=== PATIENT | female | born 1985 | race Caucasian/White ===

== ENCOUNTER 2018-07-05 21:32 | Emergency (ER) | payer OTHER ==
--- NOTE | 2018-07-05 22:20 | ERPHSYRPT ---
- History of Present Illness Time Seen by Provider: 07/05/18 22:20 Source: patient, family Exam Limitations: no limitations Physician History: 33 y/o white female 2 weeks s/p c section at [facility]. pt has had suprapubic pressure and fevers over last few days. pt is breast feeding. no n/v/d. she has not noticed sig drainage from site. Timing/Duration: day(s) (a few days) Quality: painful Severity: mild Associated Symptoms: fever Allergies/Adverse Reactions: Penicillins Allergy (Verified 07/05/18 22:35) Sulfa (Sulfonamide Antibiotics) Allergy (Verified 07/05/18 22:35) Home Medications: Ferrous Sulfate 325 mg [Feosol 325 mg] 325 mg PO DAILY 07/05/18 [History] Metformin HCl 500 mg [Glucophage 500 MG] 1,000 mg PO DAILY 07/05/18 [ History] Vits W-Ca,Fe,FA(<1Mg) [] 1 tab PO DAILY 07/05/18 [History] - Review of Systems Constitutional: Fever Eyes: No Symptoms Ears, Nose, & Throat: No Symptoms Respiratory: No Symptoms Cardiac: No Symptoms Abdominal/Gastrointestinal: Abdominal Pain (mils suprapubic) Genitourinary Symptoms: No Symptoms Musculoskeletal: No Symptoms Skin: No Symptoms Neurological: No Symptoms Psychological: No Symptoms Endocrine: No Symptoms Hematologic/Lymphatic: No Symptoms Immunological/Allergic: No Symptoms All Other Systems: Reviewed and Negative - Past Medical History Neurological History: No Pertinent History ENT History: No Pertinent History Cardiac History: No Pertinent History Respiratory History: No Pertinent History Endocrine Medical History: No Pertinent History Musculoskeletal History: No Pertinent History GI Medical History: No Pertinent History History: No Pertinent History Psycho-Social History: No Pertinent History Female Reproductive Disorders: No Pertinent History - Past Surgical History Neuro Surgical History: No Pertinent History Cardiac: No Pertinent History Respiratory: No Pertinent History Gastrointestinal: No Pertinent History Genitourinary: No Pertinent History Musculoskeletal: No Pertinent History Female Surgical History: Section - Nursing Vital Signs Nursing Vital Signs: Initial Vital Signs Temperature 98.2 F 07/05/18 22:18 Pulse Rate 99 H 07/05/18 22:18 Respiratory Rate 16 07/05/18 22:18 Blood Pressure 96/63 07/05/18 22:18 O2 Sat by Pulse Oximetry 99 07/05/18 22:18 Pain Scale Pain Intensity 8 - Physical Exam General Appearance: no apparent distress, alert, anxiety Eye Exam: PERRL/EOMI Ears, Nose, Throat Exam: normal ENT inspection, moist mucous membranes Neck Exam: normal inspection, non-tender, supple, full range of motion Respiratory Exam: normal breath sounds, lungs clear, airway intact, No chest tenderness, No respiratory distress Cardiovascular Exam: regular rate/rhythm, normal heart sounds, normal peripheral pulses Gastrointestinal/Abdomen Exam: soft, normal bowel sounds, tenderness (mild suprapubic), other (c section incision intact without cellulitis or drainage.), No guarding, No rebound Pelvic Exam: not done Rectal Exam: not done Back Exam: normal inspection, normal range of motion, No CVA tenderness, No vertebral tenderness Extremity Exam: normal inspection, normal range of motion, pelvis stable Neurologic Exam: alert, oriented x 3, cooperative, mooner II-XII nml as tested Skin Exam: normal color, warm, dry, other (see above) Lymphatic Exam: No adenopathy SpO2 Interpretation: normal O2 Delivery: Room Air Ordered Tests: Active Orders 24 hr Category Date Time Status IV Insertion STAT Care 07/05/18 22:38 Active ABDOMEN AND PELVIS W/0 CONTRAS [CT] Stat Exams 07/05/18 23:59 Ordered BLOOD CULTURE Stat Lab 07/05/18 23:07 Received CBC W DIFF Stat Lab 07/05/18 23:07 Completed CMP Stat Lab 07/05/18 23:07 Completed CULTURE,URINE Stat Lab 07/05/18 22:30 Received Lactic Acid Stat Lab 07/05/18 23:04 Completed Manual Differential NC Stat Lab 07/05/18 23:07 Completed UA W/RFX UR CULTURE Stat Lab 07/05/18 22:30 Completed Medication Summary Discontinued Medications Generic Name Dose Route Start Last Admin Trade Name Freq PRN Reason Stop Dose Admin Sodium Chloride 1,000 mls @ 999 mls/hr 07/05/18 22:38 07/06/18 00:36 Sodium Chloride 0.9% 1000 Ml IV 07/05/18 23:38 Infused .Q1H1M STA Infusion Sodium Chloride Confirm 07/05/18 22:49 Sodium Chloride 0.9% 1000 Ml Administered 07/05/18 22:50 Dose 1,000 mls @ ud .ROUTE .STK-MED ONE Ceftriaxone Sodium/Dextrose 1 g in 50 mls @ 100 mls/hr 07/05/18 23:35 00:36 Rocephin 1 Gm-D5w 50 Ml Bag IV 07/06/18 00:04 Infused STAT STA Infusion Ceftriaxone Sodium/Dextrose Confirm 07/05/18 23:40 Rocephin 1 Gm-D5w 50 Ml Bag Administered 07/05/18 23:41 Dose 1 g in 50 mls @ IV .STK-MED ONE Lab/Rad Data: Laboratory Result Diagrams 07/05/18 23:07 07/05/18 23:07 Laboratory Results 07/05/18 07/05/18 07/05/18 Range/Units 23:07 23:07 23:04 WBC 16.6 H (4.0-10.5) K/mm3 RBC 3.51 L (4.1-5.4) M/mm3 Hgb 9.5 L (12.0-16.0) gm/dl Hct 30.0 L (35-47) % MCV 85.5 (78-100) fl MCH 27.0 (26-32) pg MCHC 31.7 L (32-36) g/dl RDW 14.6 H (11.5-14.0) % Plt Count 363 (150-450) K/mm3 MPV 9.3 (6-9.5) fl Absolute Granulocytes 13.43 H (1.4-6.9) Sodium 143 (137-145) mmol/L Potassium 3.4 L (3.5-5.1) mmol/L Chloride 110 H (98-107) mmol/L Carbon Dioxide 21 L (22-30) mmol/L Anion Gap 15.4 H (5-15) MEQ/L BUN 14 (7-17) mg/dL Creatinine 0.63 (0.52-1.04) mg/dL Estimated GFR > 60.0 ML/MIN Glucose 81 (74-106) mg/dL Lactic Acid 0.9 (0.4-2.0) Calcium 8.7 (8.4-10.2) mg/dL Total Bilirubin 0.50 (0.2-1.3) mg/dL AST 40 H (14-36) U/L ALT 63 H (0-35) U/L Alkaline Phosphatase 475 H (38-126) U/L Serum Total Protein 6.4 (6.3-8.2) g/dL Albumin 3.0 L (3.5-5.0) g/dL Urine Color (YELLOW) Urine Appearance (CLEAR) Urine pH (5-6) Ur Specific [place] (1.005-1.025) Urine Protein (Negative) Urine Ketones (NEGATIVE) Urine Blood (0-5) Chan/ul Urine Nitrite (NEGATIVE) Urine Bilirubin (NEGATIVE) Urine Urobilinogen (0-1) mg/dL Ur Leukocyte Esterase (NEGATIVE) Urine WBC (Auto) (0-5) /HPF Urine RBC (Auto) (0-2) /HPF U Epithel Cells (Auto) (FEW) /HPF Urine Bacteria (Auto) (NEGATIVE) /HPF U Non-Squamous Epi Cells (FEW) /HPF Urine Mucus (Auto) (NEGATIVE) /HPF Urine Culture Reflexed (NO) Urine Glucose (NEGATIVE) mg/dL 07/05/18 Range/Units 22:30 WBC (4.0-10.5) K/mm3 RBC (4.1-5.4) M/mm3 Hgb (12.0-16.0) gm/dl Hct (35-47) % MCV (78-100) fl MCH (26-32) pg MCHC (32-36) g/dl RDW (11.5-14.0) % Plt Count (150-450) K/mm3 MPV (6-9.5) fl Absolute Granulocytes (1.4-6.9) Sodium (137-145) mmol/L Potassium (3.5-5.1) mmol/L Chloride (98-107) mmol/L Carbon Dioxide (22-30) mmol/L Anion Gap (5-15) MEQ/L BUN (7-17) mg/dL Creatinine (0.52-1.04) mg/dL Estimated GFR ML/MIN Glucose (74-106) mg/dL Lactic Acid (0.4-2.0) Calcium (8.4-10.2) mg/dL Total Bilirubin (0.2-1.3) mg/dL AST (14-36) U/L ALT (0-35) U/L Alkaline Phosphatase (38-126) U/L Serum Total Protein (6.3-8.2) g/dL Albumin (3.5-5.0) g/dL Urine Color VÍCTOR (YELLOW) Urine Appearance SLIGHTLY CLOUDY (CLEAR) Urine pH 5.0 (5-6) Ur Specific [place] 1.038 (1.005-1.025) Urine Protein 100 (Negative) Urine Ketones NEGATIVE (NEGATIVE) Urine Blood LARGE (0-5) Chan/ul Urine Nitrite NEGATIVE (NEGATIVE) Urine Bilirubin SMALL (NEGATIVE) Urine Urobilinogen 4 (0-1) mg/dL Ur Leukocyte Esterase SMALL (NEGATIVE) Urine WBC (Auto) 16-25 (0-5) /HPF Urine RBC (Auto) 26-50 (0-2) /HPF U Epithel Cells (Auto) RARE (FEW) /HPF Urine Bacteria (Auto) FEW (NEGATIVE) /HPF U Non-Squamous Epi Cells RARE (FEW) /HPF Urine Mucus (Auto) SLIGHT (NEGATIVE) /HPF Urine Culture Reflexed YES (NO) Urine Glucose NEGATIVE (NEGATIVE) mg/dL - Progress Progress: improved, pain not gone completely Progress Note: 07/06/18 01:08 bilat venous dopplers negative for dvt Counseled pt/family regarding: lab results, diagnosis, need for follow-up, rad results - Departure Departure Disposition: Home Clinical Impression: Bilateral lower extremity pain Condition: Stable Critical Care Time: No Referrals: JOSE LLAMAS [Primary Care Provider] - Additional Instructions: follow up later today with your primary doctor for further management
[2018-07-05] MEDS ORDERED: Sodium Chloride 0.9% 1000 ML 1,000 ML IV STA (22:38)
[2018-07-05] MEDS ORDERED: Sodium Chloride 0.9% 1000 ML 1,000 ML ONE (22:49)
[2018-07-05 23:08] LABS: Appearance SLIGHTLY CLOUDY (CLEAR); Bacteria FEW /HPF (NEGATIVE); Bilirubin SMALL (NEGATIVE); Blood LARGE Ery/ul (0-5); Epithelial Cells RARE /HPF (FEW); Glucose NEGATIVE (NEGATIVE); Ketones NEGATIVE (NEGATIVE); Leukocyte Esterase SMALL (NEGATIVE); Mucus SLIGHT /HPF (NEGATIVE); Nitrite NEGATIVE (NEGATIVE); Non-Squamous Epithelial Cells RARE /HPF (FEW); Protein,Urine Dip 100 (Negative); RBC 26-50 /HPF (0-2); Specific Gravity 1.038 (1.005-1.025); Urobilinogen 4 mg/dL (0-1)
[2018-07-05 23:11] LABS: Granulocyte Absolute (ANC) 13.43 (1.4-6.9); Hemoglobin 9.5 gm/dl (12.0-16.0); Mean Cell Volume 85.5 fl (78-100); Mean Corpuscular Hgb Concent. 31.7 g/dl (32-36); Mean Platelet Volume 9.3 fl (6-9.5); Platelet Count 363 K/mm3 (150-450); Red Blood Count 3.51 M/mm3 (4.1-5.4); Red Cell Distribution Width 14.6 % (11.5-14.0); White Blood Count 16.6 K/mm3 (4.0-10.5)
[2018-07-05 23:22] LABS: ALKALINE PHOSPHATASE 475 U/L (38-126); ANION GAP 15.4 MEQ/L (5-15); BLOOD UREA NITROGEN 14 mg/dL (7-17); CHLORIDE 110 mmol/L (98-107); Calcium 8.7 mg/dL (8.4-10.2); Carbon Dioxide 21 mmol/L (22-30); Creatinine 1 0.63 mg/dL (0.52-1.04); Glucose 81 mg/dL (74-106); Potassium 3.4 mmol/L (3.5-5.1); SGOT/AST 40 U/L (14-36); SGPT/ALT 63 U/L (0-35); SODIUM 143 mmol/L (137-145); Total Protein 6.4 g/dL (6.3-8.2)
[2018-07-05] MEDS ORDERED: ROCEPHIN 1 Gm-D5w 50 ml Bag** 1 G/50 ML IVPB IV STA (23:35)
[2018-07-05] MEDS ORDERED: ROCEPHIN 1 Gm-D5w 50 ml Bag** 1 G/50 ML IVPB IV ONE (23:40)
[2018-07-06 01:13] LABS: BAND 1 % (0.0-2.0); Lymphocytes 13 % (24-44); Monocyte 7 % (0.0-12.0); Neutrophils 79 % (36.0-66.0); Total Cells Counted 100
[2018-07-06 01:14] LABS: Platelet Estimate NORMAL (NORMAL)
[2018-07-06 01:28] VITALS: O2SAT 98
[2018-07-06] MEDS ORDERED: NORCO 5/325 MG PO ONE (03:49)
[2018-07-06] MEDS ORDERED: NORCO 5/325 MG ONE (03:49)
[2018-07-06 03:53] VITALS: BP 131/7; PULSE 124
--- NOTE | 2018-07-06 09:04 | XRAY ---
Indication: incisional swelling, fever, and elevated WBC. Multiple contiguous axial images obtained through the abdomen and pelvis without contrast as ordered. Comparison: None. Lung bases demonstrates minimal left base dependent atelectasis. No infiltrate or effusion. Heart is not enlarged. Lower anterior abdominal wall demonstrates cutaneous/subcutaneous soft tissue swelling with induration presumed postoperative. There is underlying 4.4 x 18.3 x 7.1 cm lobular fluid collection with tiny pockets of air either postoperative hematoma/seroma versus abscess. Noncontrasted stomach and bowel loops appear nonobstructed. Normal appendix with tiny appendicolith. Enlarged uterus from recent gravid status. Splenomegaly measuring 14.4 cm in greatest axial dimension. Minimal gallbladder sludge without calculi. A few tiny nonobstructing right renal punctate calculi. Remaining liver, gallbladder, pancreas, spleen, adrenal glands, kidneys, ureters, bladder, uterus, and aorta appear unremarkable for noncontrast exam. Osseous structures intact. Impression: 1. Lower anterior abdominal wall incisional fluid collection as detailed. Rule out postoperative hematoma/seroma versus abscess. 2. Gallbladder sludge and nonobstructing right renal micro-calculi. 3. Enlarged uterus and splenomegaly presumed related to recent gravid status. Comment: Preliminary interpretation was made by [facility]. No discrepancy. CT DI 27.90
== END 2018-07-06 03:55 | disposition home or self-care (01) ==
LOC: ED 21:32 → MERGE 21:32 → ED 07-06 03:55
DX: M79.605 Pain in left leg (principal); M79.604 Pain in right leg
CPT/HCPCS: 36000; 36415; 74176; 80053; 81001; 83605; 85025; 87040; 87086; 96360; 96365; 96374; 99284; J0696; A9270-GY

== ENCOUNTER 2018-07-06 12:11 | Emergency (ER) | payer OTHER ==
[2018-07-06] MEDS ORDERED: KEFLEX 500 MG PO ONE (12:44)
[2018-07-06 12:45] VITALS: BP 94/49; PULSE 84; O2SAT 98
[2018-07-06] MEDS ORDERED: KEFLEX 500 MG ONE (12:47)
--- NOTE | 2018-07-06 13:06 | ERPHSYRPT ---
- History of Present Illness Time Seen by Provider: 07/06/18 12:45 Source: patient Exam Limitations: clinical condition Patient Subjective Stated Complaint: drainage from incision site this AM pink drainage with small specks of blood clots. sdecreased pain after drainage Triage Nursing Assessment: alert in no distress. states incision site draining. noted incision with a yellow serous drainage from incision. slight redness. painful to touch. astates a large amount of drainage came from there when she went to sleep after being here. staets was a large lump on the right side yesterday which is not there now. 14 days post . Physician History: PATIENT IS POST 14 DAYS DELIVERY, PRESENTS TODAY FOR WOUND RECHECK, HAS DRAINAGE CLEAR FOR INCISIONAL SITE. DENIES FEVER OR CHILLS. EVALUATED IN EMERGENCY LAST NIGHT FOR SWELLING ADJACENT TO WOUND. DENIES FEVER OR CHILLS. PLACED ON ANTIBIOTIC KEFLEX WHICH SHE HAS NOT FILLED. Timing/Duration: today Severity: mild Modifying Factors: Improves With: other Associated Symptoms: other (WOUND DRAINAGE) Allergies/Adverse Reactions: Penicillins Allergy (Verified 07/05/18 22:35) Sulfa (Sulfonamide Antibiotics) Allergy (Verified 07/05/18 22:35) Home Medications: Ferrous Sulfate 325 mg [Feosol 325 mg] 325 mg PO DAILY 07/05/18 [History] Metformin HCl 500 mg [Glucophage 500 MG] 1,000 mg PO DAILY 07/05/18 [ History] Vits W-Ca,Fe,FA(<1Mg) [] 1 tab PO DAILY 07/05/18 [History] Hx Tetanus, Diphtheria Vaccination/Date Given: (unknown) Hx Influenza Vaccination/Date Given: No Hx Pneumococcal Vaccination/Date Given: No - Review of Systems Constitutional: No Fever, No Chills Eyes: No Symptoms Ears, Nose, & Throat: No Symptoms Respiratory: No Symptoms, No Cough, No Dyspnea Cardiac: No Symptoms, No Chest Pain, No Edema, No Syncope Abdominal/Gastrointestinal: Other (INCISIONAL WOUND WITH CLEAR DRAINAGE, SLIGHT ERYTHEMA), No Abdominal Pain, No Nausea, No Vomiting, No Diarrhea Genitourinary Symptoms: No Dysuria Musculoskeletal: No Symptoms, No Back Pain, No Neck Pain Skin: No Rash Neurological: No Dizziness, No Focal Weakness, No Sensory Changes Psychological: No Symptoms Endocrine: No Symptoms All Other Systems: Reviewed and Negative - Past Medical History Pertinent Past Medical History: Yes Neurological History: No Pertinent History ENT History: No Pertinent History Cardiac History: No Pertinent History Respiratory History: No Pertinent History Endocrine Medical History: No Pertinent History Musculoskeletal History: No Pertinent History GI Medical History: No Pertinent History History: No Pertinent History Psycho-Social History: No Pertinent History Female Reproductive Disorders: No Pertinent History Other Medical History: PCOS - Past Surgical History Past Surgical History: Yes Neuro Surgical History: No Pertinent History Cardiac: No Pertinent History Respiratory: No Pertinent History Gastrointestinal: No Pertinent History Genitourinary: No Pertinent History Musculoskeletal: No Pertinent History Female Surgical History: Section - Social History Smoking Status: Never smoker Exposure to second hand smoke: No Drug Use: none Patient Lives Alone: No - Female History Hx Now: No - Nursing Vital Signs Nursing Vital Signs: Initial Vital Signs Temperature 98.0 F 07/06/18 12:30 Pulse Rate 84 07/06/18 12:30 Respiratory Rate 18 07/06/18 12:30 Blood Pressure 94/49 07/06/18 12:30 O2 Sat by Pulse Oximetry 98 07/06/18 12:30 Pain Scale Pain Intensity 3 - Physical Exam General Appearance: no apparent distress, alert Eye Exam: PERRL/EOMI, eyes nml inspection Ears, Nose, Throat Exam: normal ENT inspection, TMs normal, pharynx normal, moist mucous membranes Neck Exam: normal inspection, non-tender, supple, full range of motion Respiratory Exam: normal breath sounds, lungs clear, No respiratory distress Cardiovascular Exam: regular rate/rhythm, normal heart sounds, normal peripheral pulses Gastrointestinal/Abdomen Exam: soft, normal bowel sounds, other, No tenderness, No mass Back Exam: normal inspection, normal range of motion, No CVA tenderness, No vertebral tenderness Extremity Exam: normal inspection, normal range of motion, pelvis stable Neurologic Exam: alert, oriented x 3, cooperative, normal mood/affect, nml cerebellar function, nml station & gait, sensation nml, No motor deficits Skin Exam: normal color, warm, dry, No rash Lymphatic Exam: No adenopathy SpO2: 98 Ordered Tests: Medication Summary Discontinued Medications Generic Name Dose Route Start Last Admin Trade Name Freq PRN Reason Stop Dose Admin Cephalexin HCl 500 mg 07/06/18 12:44 07/06/18 12:48 Keflex 500 Mg PO 07/06/18 12:45 500 mg STAT ONE Administration Cephalexin HCl Confirm 07/06/18 12:47 Keflex 500 Mg Administered 07/06/18 12:48 Dose 500 mg .ROUTE .STK-MED ONE - Progress Progress Note: 07/06/18 13:08 DRESSING CHANGE GAUZE DRESSING WITH ABD PAD Counseled pt/family regarding: diagnosis, need for follow-up - Departure Departure Disposition: Home Clinical Impression: ABDOMINAL WOUND SEROMA Condition: Stable Critical Care Time: No Referrals: JOSE LLAMAS [Primary Care Provider] - Additional Instructions: FILL PRESCRIPTION FOR ANTIBIOTIC KEFLEX AND TAKE DIRECTED. TYLENOL EVERY 4 HOURS FOR FEVER. CHANGE ABDOMINAL WOUND DRESSING EVERY 2 HOURS NEEDED. FOLLOW UP WITH OBSTETICIAN SCHEDULED.
== END 2018-07-06 13:22 | disposition home or self-care (01) ==
LOC: ED 12:11 → MERGE 12:11 → ED 13:22
DX: O90.2 Hematoma of obstetric wound (principal)
CPT/HCPCS: 99283; A9270-GY

== ENCOUNTER 2019-09-13 11:17 | Emergency (ER) | payer OTHER ==
[2019-09-13 11:37] VITALS: O2SAT 98
[2019-09-13 12:43] VITALS: BP 110/64; PULSE 68
--- NOTE | 2019-09-13 12:44 | ERPHSYRPT ---
- History of Present Illness Time Seen by Provider: 09/13/19 11:20 Source: patient Exam Limitations: no limitations Patient Subjective Stated Complaint: Pt is 5 weeks today and when she went to the restroom there was blood on the toilet paper, pt had lab work done yesterday and was told that she has a UTI Triage Nursing Assessment: Pt brought self to the ER, vitals wnl, denies pain, no blood upon urination at the ER, pulses normal, doesn't appear to be in any distress Physician History: Patient is here with blood in urine. Patient states that this started yesterday. Patient states that she is 5 weeks . States that when she wiped after pain there was blood on the toilet paper. However, she has not had a large amount of blood. She has no falls or trauma. No abdominal pain. No fever, chills, nausea, vomiting. No signs of pyelonephritis. Patient states that she did have a urine done yesterday at her doctor's office. This confirmed that she was and that she did have a UTI. However, they asked that she come here to be checked out. They did call in an antibiotic for her. Timing/Duration: yesterday Severity: mild Modifying Factors: Improves With: rest Associated Symptoms: denies symptoms Allergies/Adverse Reactions: Penicillins Allergy (Verified 09/13/19 11:36) Sulfa (Sulfonamide Antibiotics) Allergy (Verified 09/13/19 11:36) Home Medications: Metformin HCl 500 mg [Glucophage 500 MG] 1,000 mg PO DAILY 07/05/18 [History] Vits W-Ca,Fe,FA(<1Mg) [] 1 tab PO DAILY 07/05/18 [History] Levothyroxine Sodium 150 Mcg [Synthroid 150 Mcg] 150 mcg PO DAILY 09/13/19 [History] Hx Tetanus, Diphtheria Vaccination/Date Given: (unknown) Hx Influenza Vaccination/Date Given: No Hx Pneumococcal Vaccination/Date Given: No Travel Risk - International Travel Have you traveled outside of the country in past 3 weeks: No - Coronavirus Screening Are you exhibiting any of the following symptoms?: No Close contact with a COVID-19 positive Pt in past 14-21 Days: No - Review of Systems Constitutional: No Fever, No Chills Eyes: No Symptoms Ears, Nose, & Throat: No Symptoms Respiratory: No Cough, No Dyspnea Cardiac: No Chest Pain, No Edema, No Syncope Abdominal/Gastrointestinal: No Abdominal Pain, No Nausea, No Vomiting, No Lisette rrhea Genitourinary Symptoms: Hematuria, No Dysuria Musculoskeletal: No Back Pain, No Neck Pain Skin: No Rash Neurological: No Dizziness, No Focal Weakness, No Sensory Changes Psychological: No Symptoms Endocrine: No Symptoms All Other Systems: Reviewed and Negative - Past Medical History Pertinent Past Medical History: Yes Neurological History: No Pertinent History ENT History: No Pertinent History Cardiac History: No Pertinent History Respiratory History: No Pertinent History Endocrine Medical History: No Pertinent History Musculoskeletal History: No Pertinent History GI Medical History: No Pertinent History History: No Pertinent History Psycho-Social History: No Pertinent History Female Reproductive Disorders: No Pertinent History Other Medical History: PCOS - Past Surgical History Past Surgical History: Yes Neuro Surgical History: No Pertinent History Cardiac: No Pertinent History Respiratory: No Pertinent History Gastrointestinal: No Pertinent History Genitourinary: No Pertinent History Musculoskeletal: No Pertinent History Female Surgical History: Section - Social History Smoking Status: Never smoker Exposure to second hand smoke: No Drug Use: none Patient Lives Alone: No - Female History Hx Now: Yes Gestational Age: 5 weeks - Nursing Vital Signs Nursing Vital Signs: Initial Vital Signs Temperature 98.3 F 09/13/19 11:26 Pulse Rate 70 09/13/19 11:26 Blood Pressure 105/70 09/13/19 11:26 O2 Sat by Pulse Oximetry 98 09/13/19 11:26 Pain Scale Pain Intensity 0 - Physical Exam General Appearance: no apparent distress, alert Eye Exam: PERRL/EOMI, eyes nml inspection Ears, Nose, Throat Exam: normal ENT inspection, TMs normal, pharynx normal, moist mucous membranes Neck Exam: normal inspection, non-tender, supple, full range of motion Respiratory Exam: normal breath sounds, lungs clear, No respiratory distress Cardiovascular Exam: regular rate/rhythm, normal heart sounds, normal peripheral pulses Gastrointestinal/Abdomen Exam: soft, normal bowel sounds, other (No abdominal pain, tenderness, rebound, guarding), No tenderness, No mass Back Exam: normal inspection, normal range of motion, No CVA tenderness, No vertebral tenderness Extremity Exam: normal inspection, normal range of motion, pelvis stable Neurologic Exam: alert, oriented x 3, cooperative, normal mood/affect, nml cerebellar function, nml station & gait, sensation nml, No motor deficits Skin Exam: normal color, warm, dry, No rash Lymphatic Exam: No adenopathy SpO2: 98 - Course Nursing assessment & vital signs reviewed: Yes Ordered Tests: Active Orders 24 hr Category Date Time Status HCG,QUALITATIVE URINE Stat Lab 09/13/19 12:13 Completed UA W/RFX UR CULTURE Stat Lab 09/13/19 12:13 Completed Lab/Rad Data: Laboratory Results 09/13/19 09/13/19 Range/Units 12:13 12:13 Urine Color YELLOW (YELLOW) Urine Appearance SLIGHTLY CLOUDY (CLEAR) Urine pH 5.0 (5-6) Ur Specific [place] 1.015 (1.005-1.025) Urine Protein NEGATIVE (Negative) Urine Ketones NEGATIVE (NEGATIVE) Urine Blood LARGE (0-5) Chan/ul Urine Nitrite NEGATIVE (NEGATIVE) Urine Bilirubin NEGATIVE (NEGATIVE) Urine Urobilinogen NEGATIVE (0-1) mg/dL Ur Leukocyte Esterase NEGATIVE (NEGATIVE) Urine WBC (Auto) 3-5 (0-5) /HPF Urine RBC (Auto) 3-5 (0-2) /HPF U Epithel Cells (Auto) FEW (FEW) /HPF Urine Bacteria (Auto) RARE (NEGATIVE) /HPF Urine Mucus (Auto) SLIGHT (NEGATIVE) /HPF Urine Culture Reflexed NO (NO) Urine Glucose NEGATIVE (NEGATIVE) mg/dL Urine HCG, Qual POSITIVE (Negative) - Progress Progress: improved Progress Note: 09/13/19 12:44 Patient is here with blood in the urine. No abdominal pain. States that she is 5 weeks . We will send a UA, urine . 09/13/19 13:28 Urine is positive. UA does show blood. Not overwhelmingly a UTI but could still be a UTI. I do not suspect pyelonephritis, kidney stones, other sinister pathology that would put the at risk at this point time. She will need close follow-up, urine culture, return here for new or changing symptoms. Patient already has antibiotics called in for her. Therefore, we will have her take these. Return here for new or changing symptoms. - Departure Departure Disposition: Home Clinical Impression: Blood in urine Condition: Stable Critical Care Time: No Referrals: DOCTOR,NO FAMILY [Primary Care Provider] - Instructions: Heavy Periods (DC)
[2019-09-13 13:10] LABS: Appearance SLIGHTLY CLOUDY (CLEAR); Bacteria RARE /HPF (NEGATIVE); Bilirubin NEGATIVE (NEGATIVE); Blood LARGE Ery/ul (0-5); Epithelial Cells FEW /HPF (FEW); Glucose NEGATIVE (NEGATIVE); Ketones NEGATIVE (NEGATIVE); Leukocyte Esterase NEGATIVE (NEGATIVE); Mucus SLIGHT /HPF (NEGATIVE); Nitrite NEGATIVE (NEGATIVE); Protein,Urine Dip NEGATIVE (Negative); Specific Gravity 1.015 (1.005-1.025); Urobilinogen NEGATIVE mg/dL (0-1)
== END 2019-09-13 13:36 | disposition home or self-care (01) ==
LOC: ED 11:17
DX: O23.41 Unspecified infection of urinary tract in pregnancy, first trimester (principal); R31.9 Hematuria, unspecified
CPT/HCPCS: 81001; 84703; 99283

== ENCOUNTER 2023-01-19 23:25 | Emergency (ER) | payer OTHER ==
[2023-01-19 23:32] VITALS: TEMP 97.7
[2023-01-19] MEDS ORDERED: TYLENOL 325 MG PO ONE (23:53)
[2023-01-19] MEDS ORDERED: TYLENOL 325 MG ONE (23:57)
--- NOTE | 2023-01-20 00:34 | XRAY ---
CLINICAL HISTORY:headache COMPARISON:None TECHNIQUE:Axial noncontrast CT scan of the brain was performed from the skull base to the high parietal region. FINDINGS: The visualized brain parenchyma shows santos-white matter differentiation. No midline shift. No intracerebral or extra axial hematoma. Normal size and configuration of the cerebral ventricles. Normal CT appearance of the posterior fossa structures . The osseous structures in the skull base are unremarkable. No definite calvarium fractures. Scanned paranasal sinuses and mastoid air cells are clear. Small saman bullosa in right middle turbinate. IMPRESSION: Unremarkable non-enhanced CT study for the brain. No acute intracranial abnormality. Electronically Signed by: Yahir Amador MD. (01/19/2023 23:32:20 EDUCATION TECHNICIAN)
--- NOTE | 2023-01-20 00:36 | ERPHSYRPT ---
- History of Present Illness Time Seen by Provider: 01/19/23 23:40 Source: patient Exam Limitations: no limitations Patient Subjective Stated Complaint: headache and vomiting Triage Nursing Assessment: pt brought in by ems. Pt alert and oriented x4. Pt was having an argument with her and began vomiting because "I was so amped up". Then pt got a headache, c/o pain to the back of her head. Pt denies any dizziness or loc. Pt states, "I've been under alot of stress lately too". Physician History: Patient is a 37-year-old female presents to our emergency department for evaluation of a headache started 2 hours prior to arrival. Headache is global patient was arguing with her . Patient states she got very upset. Patient developed a headache and became nauseous. No other complaints. No chest pain or shortness of breath. No nausea vomiting or diaphoresis. There is no trauma. No physical confrontation. Patient states that she feels safe at home. Symptoms are mild to moderate in intensity. No specific worsening or improving factors. Patient states she has a history of migraine headaches. She has not taken medications for headaches at this time. Patient otherwise feels well. She voices no other complaints or concerns at this time. Portions of this note were created with voice recognition technology. There may be grammatical, spelling, punctuation or sound alike errors Timing/Duration: today Severity: moderate Modifying Factors: Improves With: nothing Associated Symptoms: nausea Allergies/Adverse Reactions: Penicillins Allergy (Verified 01/19/23 23:40) Sulfa (Sulfonamide Antibiotics) Allergy (Verified 01/19/23 23:40) Home Medications: Levothyroxine Sodium 150 Mcg [Synthroid 150 Mcg] 175 mcg PO DAILY 09/13/19 [History] Sertraline HCl 100 mg PO HS 01/19/23 [History] Hx Tetanus, Diphtheria Vaccination/Date Given: Yes Hx Influenza Vaccination/Date Given: No Hx Pneumococcal Vaccination/Date Given: No Immunizations Up to Date: No Travel Risk - International Travel Have you traveled outside of the country in past 3 weeks: No - Coronavirus Screening Are you exhibiting any of the following symptoms?: Yes Symptoms: Vomiting/Diarrhea, Headaches/Body Aches/Fatigue Close contact with a COVID-19 positive Pt in past 14-21 Days: No - Vaccine Status Have you recieved a Covid-19 vaccination: Yes Outreach Professional: Moderna - Vaccination Dates Date of 2cond Vaccination (if applicable): . - Review of Systems Constitutional: No Symptoms, No Fever, No Chills Eyes: No Symptoms Ears, Nose, & Throat: No Symptoms Respiratory: No Symptoms, No Cough, No Dyspnea Cardiac: No Symptoms, No Chest Pain, No Edema, No Syncope Abdominal/Gastrointestinal: No Symptoms, No Abdominal Pain, No Nausea, No V omiting, No Diarrhea Genitourinary Symptoms: No Symptoms, No Dysuria Musculoskeletal: No Symptoms, No Back Pain, No Neck Pain Skin: No Symptoms, No Rash Neurological: No Symptoms, No Dizziness, No Focal Weakness, No Sensory Changes Psychological: No Symptoms Endocrine: No Symptoms Hematologic/Lymphatic: No Symptoms Immunological/Allergic: No Symptoms All Other Systems: Reviewed and Negative - Past Medical History Pertinent Past Medical History: Yes Neurological History: No Pertinent History ENT History: No Pertinent History Cardiac History: No Pertinent History Respiratory History: No Pertinent History Endocrine Medical History: Thyroid Cancer Musculoskeletal History: No Pertinent History GI Medical History: No Pertinent History History: No Pertinent History Psycho-Social History: Depression Female Reproductive Disorders: No Pertinent History Other Medical History: PCOS - Past Surgical History Past Surgical History: Yes Neuro Surgical History: No Pertinent History Cardiac: No Pertinent History Respiratory: No Pertinent History Gastrointestinal: No Pertinent History Genitourinary: No Pertinent History Musculoskeletal: No Pertinent History, Orthopedic Surgery Female Surgical History: Section Other Surgical History: thyroid removed. knee scope - Social History Smoking Status: Never smoker Exposure to second hand smoke: No Drug Use: marijuana Patient Lives Alone: No - Female History Hx Last Menstrual Period: 12/2022 Hx Now: No - Nursing Vital Signs Nursing Vital Signs: Initial Vital Signs Temperature 97.7 F 01/19/23 23:28 Pulse Rate 78 01/19/23 23:28 Respiratory Rate 28 H 01/19/23 23:28 Blood Pressure 143/75 01/19/23 23:28 O2 Sat by Pulse Oximetry 98 01/19/23 23:28 Pain Scale Pain Intensity 10 - Physical Exam General Appearance: no apparent distress, alert Eye Exam: PERRL/EOMI, eyes nml inspection Ears, Nose, Throat Exam: normal ENT inspection, TMs normal, pharynx normal, moist mucous membranes Neck Exam: normal inspection, non-tender, supple, full range of motion Respiratory Exam: normal breath sounds, lungs clear, airway intact, No respiratory distress Cardiovascular Exam: regular rate/rhythm, normal heart sounds, normal peripheral pulses Gastrointestinal/Abdomen Exam: soft, normal bowel sounds, No tenderness, No mass Back Exam: normal inspection, normal range of motion, No CVA tenderness, No vertebral tenderness Extremity Exam: normal inspection, normal range of motion, pelvis stable Neurologic Exam: alert, oriented x 3, cooperative, normal mood/affect, nml cerebellar function, nml station & gait, sensation nml, No motor deficits Skin Exam: normal color, warm, dry, No rash Lymphatic Exam: No adenopathy SpO2 Interpretation: normal SpO2: 98 O2 Delivery: Room Air - Course Nursing assessment & vital signs reviewed: Yes - CT Exams Head CT Interpretation: Tele-radiologist Report (Unremarkable nonenhanced CT study of the brain no acute intracranial abnormality) Ordered Tests: Active Orders 24 hr Category Date Time Status HEAD WITHOUT CONTRAST [CT] Stat Exams 01/19/23 23:52 Completed Medication Summary Discontinued Medications Generic Name Dose Route Start Last Admin Trade Name Juan PRN Reason Stop Dose Admin Acetaminophen 975 mg 01/19/23 23:53 01/19/23 23:57 Acetaminophen 325 Mg Tablet PO 01/19/23 23:54 975 mg STAT ONE Administration Acetaminophen Confirm 01/19/23 23:57 Acetaminophen 325 Mg Tablet Administered 01/19/23 23:58 Dose 975 mg .ROUTE .STK-MED ONE Sodium Chloride 1,000 mls @ 999 mls/hr 01/20/23 01:10 01/20/23 01:11 Sodium Chloride 0.9% 1000 Ml IV 01/20/23 02:10 999 mls/hr .Q1H1M STA Administration Sodium Chloride Confirm 01/20/23 01:08 Sodium Chloride 0.9% 1000 Ml Administered 01/20/23 01:09 Dose 1,000 mls @ ud .ROUTE .STK-MED ONE Ketorolac Tromethamine 30 mg 01/20/23 01:10 01/20/23 01:12 Ketorolac Tromethamine 30 Mg/Ml Inj IV 01/20/23 01:11 30 mg STAT ONE Administration Ketorolac Tromethamine Confirm 01/20/23 01:08 Ketorolac Tromethamine 30 Mg/Ml Inj Administered 01/20/23 01:09 Dose 30 mg .ROUTE .STK-MED ONE Prochlorperazine Edisylate 10 mg 01/20/23 01:10 01/20/23 01:12 Prochlorperazine Edisylate 10 Mg/2 Ml Vial IV 01/20/23 01:11 10 mg STAT ONE Administration Prochlorperazine Edisylate Confirm 01/20/23 01:08 Prochlorperazine Edisylate 10 Mg/2 Ml Vial Administered 01/20/23 01:09 Dose 10 mg .ROUTE .STK-MED ONE - Progress Progress: improved Progress Note: Patient is a 37-year-old female presents to emergency department for evaluation of headache. Headache started after an argument with her . Headache was of acute onset. No trauma. No fever. No recent back procedures. Physical exam otherwise unremarkable. No neurological abnormalities observed on her exam today. CT head negative for acute intracranial pathology. Patient received normal saline Compazine Toradol and acetaminophen for pain control. Headache resolved. Patient now requesting discharge. Repeat neuro exam within normal limits. Patient voices no other complaints or concerns at this time. Portions of this note were created with voice recognition technology. There may be grammatical, spelling, punctuation or sound alike errors Complexity of problems addressed is moderate acute complicated No critical care time Complexity of data reviewed and analyzed is none. No specialized testing or dered. Diagnosis made based on history and physical exam Risk of complication and or risk of morbidity/mortality of patient management is moderate. We will discharge home. Vital stable. Diagnosis is migraine headache. Time spent to discharge patient is approximately 10 minutes. Plan of care established for shared decision making. No social determinants of health present impede follow-up. Portions of this note were created with voice recognition technology. There may be grammatical, spelling, punctuation or sound alike errors 01/20/23 02:16 Counseled pt/family regarding: diagnosis, need for follow-up, rad results - Departure Departure Disposition: Home Clinical Impression: Headache, Nausea Condition: Stable Critical Care Time: No Referrals: DOLORES BHAKTA, AUCTIONEER TOBACCO [Primary Care Provider] - Follow up/PCP as directed Additional Instructions: Discharge/Care Plan DAFNENINI DICKERSON was seen on 01/20/23 in the Emergency Room. The patient was counseled regarding Diagnosis,Lab results, Imaging studies, need for follow up and when to return to the Emergency Room. Prescriptions given: Discharge Note I have spoken with the patient and/or caregivers. I have explained the patient's condition, diagnosis and treatment plan based on the information available to me at this time. I have answered the patient's and/or caregiver's questions and addressed any concerns. The patient and/or caregivers have as good understanding of the patient's diagnosis, condition and treatment plan as can be expected at this point. The vital signs have been stable. The patient's condition is stable and appropriate for discharge from the emergency department. The patient will pursue further outpatient evaluation with the primary care physician or other designated or consulting physician as outlined in the discharge instructions. The patient and/or caregivers are agreeable to this plan of care and follow-up instructions have been explained in detail. The patient and/or caregivers have received these instruction. The patient/and or caregivers are aware that any significant change in condition or worsening of symptoms should prompt an immediate return to this or the closest emergency department or call 911.
[2023-01-20] MEDS ORDERED: Compazine 10 MG/2 ML ONE (01:08)
[2023-01-20] MEDS ORDERED: TORAdol 30 mg Injection ONE (01:08)
[2023-01-20] MEDS ORDERED: Sodium Chloride 0.9% 1000 ML 1,000 ML ONE (01:08)
[2023-01-20] MEDS ORDERED: TORAdol 30 mg Injection IV ONE (01:10)
[2023-01-20] MEDS ORDERED: Compazine 10 MG/2 ML IV ONE (01:10)
[2023-01-20] MEDS ORDERED: Sodium Chloride 0.9% 1000 ML 1,000 ML IV STA (01:10)
[2023-01-20 02:09] VITALS: O2SAT 98
[2023-01-20 02:17] VITALS: BP 152/77; PULSE 70; RESP 20
== END 2023-01-20 02:23 | disposition home or self-care (01) ==
LOC: ED 23:25
DX: G43.909 Migraine, unspecified, not intractable, without status migrainosus (principal); R11.0 Nausea; Z79.899 Other long term (current) drug therapy
CPT/HCPCS: 70450; 96360; 96374; 96375; 99284; J1885; A9270-GY

== ENCOUNTER 2023-07-09 08:51 | Emergency (ER) | payer OTHER ==
[2023-07-09 09:12] VITALS: TEMP 97.6
--- NOTE | 2023-07-09 09:15 | ERPHSYRPT ---
- History of Present Illness Time Seen by Provider: 07/09/23 09:14 Source: patient Exam Limitations: no limitations Patient Subjective Stated Complaint: Pt states "I had a vaginal ultrasound on the of last month and there was nothing there. Today I had horrible belly pain and sat to pee and something came out of me and allot of blood." Triage Nursing Assessment: PT presented alert and oriented x 3, skin pwd. Pt ambulates with an upright steady gait, able to speak in clear full sentences Physician History: This is a 38-year-old white female patient of nurse practitioner Anushka who has been having intermittent vaginal bleeding since March 2023. Patient states that her and her primary care provider have been trying to obtain a gynecology appointment for several months and have been unable to do so. Patient underwent transvaginal ultrasound and pelvic ultrasound on 06/10/2023. I reviewed the reports of the studies that were done as an outpatient. These studies showed new small right ovarian cyst with circumventing control thickened wall possibly corpus luteal cyst. Patient presents to the emergency department primarily because she had sudden increase in her lower abdominal pain followed by a sig nificant amount of vaginal bleeding. Patient has a history of polycystic ovarian disease. She also has a history of hypothyroidism and depression. Timing/Duration: worse, other (Symptoms have been intermittently present since March 2023) Activites at Onset: none Quality: aching, cramping Onset Location: suprapubic Pain Radiation: none Severity of Pain-Max: moderate Severity of Pain-Current: mild (Moderate) Sexual intercourse history: non-contributory Modifying Factors: Improves With: nothing Associated Symptoms: abdominal pain (Prepubic), vaginal discharge (Vaginal bleeding) Allergies/Adverse Reactions: Penicillins Allergy (Verified 01/19/23 23:40) Sulfa (Sulfonamide Antibiotics) Allergy (Verified 01/19/23 23:40) Home Medications: Levothyroxine Sodium 150 Mcg [Synthroid 150 Mcg] 175 mcg PO DAILY 09/13/19 [History] Escitalopram Oxalate 5 mg PO DAILY 07/09/23 [History] Propranolol HCl 10 mg PO 07/09/23 [History] Hx Tetanus, Diphtheria Vaccination/Date Given: Yes Hx Influenza Vaccination/Date Given: No Hx Pneumococcal Vaccination/Date Given: No Travel Risk - International Travel Have you traveled outside of the country in past 3 weeks: No - Emerging Infectious Disease Are you exhibiting symptoms associated with any current EIDs: Yes Symptoms: Abdominal Pain - Review of Systems Constitutional: No Symptoms Eyes: No Symptoms Ears, Nose, & Throat: No Symptoms Respiratory: No Symptoms Cardiac: No Symptoms Abdominal/Gastrointestinal: Abdominal Pain (Suprapubic) Genitourinary Symptoms: Vaginal Bleeding Musculoskeletal: No Symptoms Skin: No Symptoms Neurological: No Symptoms Psychological: No Symptoms Endocrine: No Symptoms Hematologic/Lymphatic: No Symptoms Immunological/Allergic: No Symptoms All Other Systems: Reviewed and Negative - Past Medical History Pertinent Past Medical History: Yes Neurological History: No Pertinent History ENT History: No Pertinent History Cardiac History: No Pertinent History Respiratory History: No Pertinent History Endocrine Medical History: Thyroid Cancer Musculoskeletal History: No Pertinent History GI Medical History: No Pertinent History History: No Pertinent History Psycho-Social History: Depression Female Reproductive Disorders: No Pertinent History Other Medical History: PCOS - Past Surgical History Past Surgical History: Yes Neuro Surgical History: No Pertinent History Cardiac: No Pertinent History Respiratory: No Pertinent History Gastrointestinal: No Pertinent History Genitourinary: No Pertinent History Musculoskeletal: No Pertinent History, Orthopedic Surgery Female Surgical History: Section Other Surgical History: thyroid removed. knee scope - Female History Hx Last Menstrual Period: 06/12/2023 Hx Now: (unknown) - Social History Smoking Status: Never smoker Exposure to second hand smoke: No Drug Use: marijuana Patient Lives Alone: No - Nursing Vital Signs Nursing Vital Signs: Initial Vital Signs Temperature 97.6 F 07/09/23 09:03 Pulse Rate 73 07/09/23 09:03 Respiratory Rate 20 07/09/23 09:03 Blood Pressure 145/78 07/09/23 09:03 O2 Sat by Pulse Oximetry 98 07/09/23 09:03 Pain Scale Pain Intensity 5 - Physical Exam General Appearance: no apparent distress, alert, anxiety Eye Exam: PERRL/EOMI, eyes nml inspection Ears, Nose, Throat Exam: normal ENT inspection, moist mucous membranes Neck Exam: normal inspection, non-tender, supple, full range of motion Respiratory Exam: normal breath sounds, lungs clear, airway intact, No chest tenderness, No respiratory distress Cardiovascular Exam: regular rate/rhythm, normal heart sounds, normal peripheral pulses Gastrointestinal/Abdomen Exam: soft, normal bowel sounds, tenderness, guarding (Suprapubic region mild with palpation in the suprapubic region), No rebound Pelvic Exam: not done Rectal Exam: not done Back Exam: normal inspection, normal range of motion, No CVA tenderness, No vertebral tenderness Extremity Exam: normal inspection, normal range of motion, pelvis stable Neurologic Exam: alert, oriented x 3, cooperative, 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 as tested, normal mood/affect, nml cerebellar function, nml station & gait, sensation nml Skin Exam: normal color, warm, dry Lymphatic Exam: No adenopathy SpO2 Interpretation: normal SpO2: 98 O2 Delivery: Room Air - Course Nursing assessment & vital signs reviewed: Yes Ordered Tests: Active Orders 24 hr Category Date Time Status IV Insertion STAT Care 07/09/23 09:16 Active ABDOMEN AND PELVIS W/0 CONTRAS [CT] Stat Exams 07/09/23 09:16 Completed AMYLASE Stat Lab 07/09/23 09:10 Completed CBC W DIFF Stat Lab 07/09/23 09:10 Completed CULTURE,URINE Stat Lab 07/09/23 09:16 Received HCG QUALITATIVE, SERUM Stat Lab 07/09/23 09:10 Completed LIPASE Stat Lab 07/09/23 09:10 Completed PROTIME WITH INR Stat Lab 07/09/23 09:10 Completed UA W/RFX UR CULTURE Stat Lab 07/09/23 09:16 Completed Medication Summary Discontinued Medications Generic Name Dose Route Start Last Admin Trade Name Larsq PRN Reason Stop Dose Admin Hydromorphone HCl 1 mg 07/09/23 09:16 07/09/23 10:36 Hydromorphone 1 Mg/1ml Inj IV 07/09/23 09:17 1 mg STAT ONE Administration Hydromorphone HCl Confirm 07/09/23 10:34 Hydromorphone 1 Mg/1ml Inj Administered 07/09/23 10:35 Dose 1 mg .ROUTE .STK-MED ONE Sodium Chloride 1,000 mls @ 999 mls/hr 07/09/23 09:16 07/09/23 10:36 Sodium Chloride 0.9% 1000 Ml IV 07/09/23 10:16 999 mls/hr .Q1H1M STA Administration Sodium Chloride Confirm 07/09/23 10:35 Sodium Chloride 0.9% 1000 Ml Administered 07/09/23 10:36 Dose 1,000 mls @ ud .ROUTE .STK-MED ONE Ondansetron HCl 4 mg 07/09/23 09:16 07/09/23 10:36 Ondansetron Hcl 4 Mg/2 Ml Vial IV 07/09/23 09:17 4 mg STAT ONE Administration Ondansetron HCl Confirm 07/09/23 10:34 Ondansetron Hcl 4 Mg/2 Ml Vial Administered 07/09/23 10:35 Dose 4 mg .ROUTE .STK-MED ONE Lab/Rad Data: Laboratory Result Diagrams 07/09/23 09:10 Laboratory Results 07/09/23 07/09/23 07/09/23 Range/Units 09:16 09:10 09:10 WBC (4.0-10.5) x10^3/uL RBC (4.1-5.4) x10^6/uL Hgb (12.0-16.0) g/dL Hct (35-47) % MCV (78-100) fL MCH (26-32) pg MCHC (32-36) g/dL RDW (11.5-14.0) % Plt Count (150-450) x10^3/uL MPV (7.5-11.0) fL Gran % (36.0-66.0) % Immature Gran % (Auto) (0.00-0.4) % Nucleat RBC Rel Count (0.00-0.1) % Eos # (Auto) (0-0.5) x10^3/uL Immature Gran # (Auto) (0.00-0.03) x10^3u/L Absolute Lymphs (auto) (1.0-4.6) x10^3/uL Absolute Monos (auto) (0.0-1.3) x10^3/uL Absolute Nucleated RBC (0.00-0.01) x10^3u/L Lymphocytes % (24.0-44.0) % Monocytes % (0.0-12.0) % Eosinophils % (0.00-5.0) % Basophils % (0.0-0.4) % Absolute Granulocytes (1.4-6.9) x10^3/uL Basophils # (0-0.4) x10^3/uL PT 9.8 (9.4-12.5) SECONDS INR 0.89 (0.8-3.0) Amylase (30-110) U/L Lipase (23-300) U/L Serum HCG, Qual NEGATIVE (NEGATIVE) Urine Color Yellow (Yellow) Urine Appearance Clear (Clear) Urine pH 7.0 (4.6-8.0) Ur Specific Hubbell 1.020 (1.005-1.030) Urine Protein Negative (Negative) Urine Glucose (UA) Negative (Negative) mg/dL Urine Ketones Negative (Negative) Urine Blood Moderate A (Negative) Urine Nitrite Negative (Negative) Urine Bilirubin Negative (Negative) Urine Urobilinogen 0.2 (0.2) mg/dL Ur Leukocyte Esterase Trace A (Negative) U Hyaline Cast (Auto) NONE SEEN (0-2) /LPF Urine Microscopic RBC 0-2 (0-5) /HPF Urine Microscopic WBC 3-5 (0-5) /HPF Ur Epithelial Cells Moderate A (None Seen) /HPF Urine Bacteria None Seen (None Seen) /HPF Urine Culture Reflexed YES (NO) 07/09/23 07/09/23 Range/Units 09:10 09:10 WBC 7.7 (4.0-10.5) x10^3/uL RBC 4.46 (4.1-5.4) x10^6/uL Hgb 12.1 (12.0-16.0) g/dL Hct 37.8 (35-47) % MCV 84.8 (78-100) fL MCH 27.1 (26-32) pg MCHC 32.0 (32-36) g/dL RDW 12.7 (11.5-14.0) % Plt Count 274 (150-450) x10^3/uL MPV 10.1 (7.5-11.0) fL Gran % 67.1 H (36.0-66.0) % Immature Gran % (Auto) 0.3 (0.00-0.4) % Nucleat RBC Rel Count 0.0 (0.00-0.1) % Eos # (Auto) 0.25 (0-0.5) x10^3/uL Immature Gran # (Auto) 0.02 (0.00-0.03) x10^3u/L Absolute Lymphs (auto) 1.73 (1.0-4.6) x10^3/uL Absolute Monos (auto) 0.46 (0.0-1.3) x10^3/uL Absolute Nucleated RBC 0.00 (0.00-0.01) x10^3u/L Lymphocytes % 22.6 L (24.0-44.0) % Monocytes % 6.0 (0.0-12.0) % Eosinophils % 3.3 (0.00-5.0) % Basophils % 0.7 (0.0-0.4) % Absolute Granulocytes 5.15 (1.4-6.9) x10^3/uL Basophils # 0.05 (0-0.4) x10^3/uL PT (9.4-12.5) SECONDS INR (0.8-3.0) Amylase 71 (30-110) U/L Lipase 109 (23-300) U/L Serum HCG, Qual (NEGATIVE) Urine Color (Yellow) Urine Appearance (Clear) Urine pH (4.6-8.0) Ur Specific Hubbell (1.005-1.030) Urine Protein (Negative) Urine Glucose (UA) (Negative) mg/dL Urine Ketones (Negative) Urine Blood (Negative) Urine Nitrite (Negative) Urine Bilirubin (Negative) Urine Urobilinogen (0.2) mg/dL Ur Leukocyte Esterase (Negative) U Hyaline Cast (Auto) (0-2) /LPF Urine Microscopic RBC (0-5) /HPF Urine Microscopic WBC (0-5) /HPF Ur Epithelial Cells (None Seen) /HPF Urine Bacteria (None Seen) /HPF Urine Culture Reflexed (NO) - Progress Progress: improved, re-examined Air Movement: good Progress Note: 07/09/23 11:02 My medical decision making and the assignment of moderate complexity to this patient's medical issue today is based on review of the patient's past medical history, review of the patient's medication list, review the patient drug allergy list, history of present illness and physical findings on examination. The workup in this patient includes placement of intravenous line, infusion of normal saline solution, CBC, CMP, amylase, lipase, urinalysis, and infusion of 4 mg intravenous Zofran, 1 mg intravenous Dilaudid and CT scan of the abdomen pelvis without contrast. Differential diagnosis includes uterine mass, urinary tract infection, ovarian cysts 07/09/23 11:45 I interpreted the patient's laboratory data results. There is no evidence of any acute, emergent medical issue based on today's laboratory data results. I am not convinced that the patient has a urinary tract infection. Will wait for the culture results to determine if the patient requires antibiotic therapy. CT scan of the abdomen pelvis without contrast was interpreted by the radiologist and I reviewed the impression the impression is that this CT scan of the abdomen pelvis without contrast is negative for any acute intra-abdominal or intrapelvic findings. Blood Culture(s) Obtained: No Antibiotics given: No Counseled pt/family regarding: lab results, diagnosis, need for follow-up, rad results Medical Desision Making - Diagnostic Testing Diagnostic test were ordered, analyzed, and reviewed by me: Yes Radiological Interpretation: Reviewed by me, Teleradiologist Report - Risk of complications Low Risk: Low risk of morbidity from additional dx testing or treatment - Departure Departure Disposition: Home Clinical Impression: Vaginal bleeding Condition: Stable Critical Care Time: No Referrals: DOLORES BHAKTA, TERESA [Primary Care Provider] - Follow up/PCP as directed Additional Instructions: Drink plenty of fluids. Take all your medications as prescribed. Call your primary care provider today, 07/09/2023, to make arrangements for further evaluation and management including referral to a coating mixer supervisor to be seen in the next 3 to 5 days
[2023-07-09 10:10] LABS: Absolute Neutrophil Ct (ANC) 5.15 x10^3/uL (1.4-6.9); BASOPHIL % 0.7 % (0.0-0.4); Basophil (Absolute #) 0.05 x10^3/uL (0-0.4); Eosinophil % 3.3 % (0.00-5.0); Eosinophil (Absolute #) 0.25 x10^3/uL (0-0.5); Hematocrit 37.8 % (35-47); Hemoglobin 12.1 g/dL (12.0-16.0); IMMATURE GRAN # 0.02 x10^3u/L (0.00-0.03); IMMATURE GRAN % 0.3 % (0.00-0.4); Lymphocyte (Absolute #) 1.73 x10^3/uL (1.0-4.6); Lymphocytes % 22.6 % (24.0-44.0); Mean Cell Volume 84.8 fL (78-100); Mean Corpuscular Hemoglobin 27.1 pg (26-32); Mean Platelet Volume 10.1 fL (7.5-11.0); Monocyte (Absolute #) 0.46 x10^3/uL (0.0-1.3); Neutrophil % 67.1 % (36.0-66.0); Platelet Count 274 x10^3/uL (150-450); Red Blood Count 4.46 x10^6/uL (4.1-5.4); Red Cell Distribution Width 12.7 % (11.5-14.0); White Blood Count 7.7 x10^3/uL (4.0-10.5)
[2023-07-09 10:19] LABS: AMYLASE 71 U/L (30-110); INR 0.89 (0.8-3.0); LIPASE 109 U/L (23-300); PROTIME 9.8 SECONDS (9.4-12.5)
[2023-07-09 10:20] LABS: HCG SERUM TEST NEGATIVE (NEGATIVE)
[2023-07-09 10:29] LABS: Appearance Clear (Clear); Bacteria None Seen /HPF (None Seen); Bilirubin Negative (Negative); Blood Moderate (Negative); Epithelial Cells Moderate /HPF (None Seen); Glucose, Urine Negative (Negative); Hyaline Casts NONE SEEN /LPF (0-2); Ketones Negative (Negative); Leukocyte Esterase Trace (Negative); Nitrite Negative (Negative); Protein,Urine Dip Negative (Negative); RBC 0-2 /HPF (0-5); Urobilinogen 0.2 mg/dL (0.2)
[2023-07-09 10:31] VITALS: BP 134/72; PULSE 87; RESP 16
[2023-07-09] MEDS ORDERED: Hydromorphone 1 mg/ml Injection ONE (10:34)
[2023-07-09] MEDS ORDERED: Zofran 4 MG/2 ML VIAL ONE (10:34)
[2023-07-09] MEDS ORDERED: Sodium Chloride 0.9% 1000 ML 1,000 ML ONE (10:35)
[2023-07-09] MEDS: Hydromorphone 1 mg/ml Injection IV ONE (10:36)
[2023-07-09] MEDS: Zofran 4 MG/2 ML VIAL IV ONE (10:36)
[2023-07-09] MEDS: Sodium Chloride 0.9% 1000 ML 1,000 ML IV STA (10:36)
[2023-07-09 10:40] LABS: ADD URINE CULTURE? YES (NO)
[2023-07-09 11:04] VITALS: O2SAT 98
--- NOTE | 2023-07-09 11:35 | XRAY ---
Indication: Abdomen pain and vaginal bleeding since March 2023. Multiple contiguous axial images obtained through the abdomen and pelvis without contrast. Comparison: July 05, 2018 Lung bases again demonstrate minimal dependent atelectasis. No infiltrate or effusion. Heart not enlarged. Noncontrasted stomach and bowel loops appear nonobstructed again with normal appendix. No free fluid/air. Remaining liver, gallbladder, pancreas, spleen, adrenal glands, kidneys, ureters, bladder, uterus, and aorta are unremarkable for noncontrast exam. Osseous structures intact. Impression: Negative CT abdomen/pelvis without contrast exam.
== END 2023-07-09 12:10 | disposition home or self-care (01) ==
LOC: ED 08:51
DX: N93.9 Abnormal uterine and vaginal bleeding, unspecified (principal); R10.30 Lower abdominal pain, unspecified; E28.2 Polycystic ovarian syndrome; Z79.899 Other long term (current) drug therapy
CPT/HCPCS: 36000; 36415; 74176; 81001; 82150; 83690; 84703; 85025; 85610; 87086; 96374; 96375; 99284; J1170; J2405

== ENCOUNTER 2023-11-19 19:22 | Emergency (ER) | payer OTHER ==
[2023-11-19 19:29] VITALS: TEMP 98.4
--- NOTE | 2023-11-19 19:31 | ERPHSYRPT ---
- History of Present Illness Time Seen by Provider: 11/19/23 19:30 Source: patient Exam Limitations: no limitations Physician History: This is an obese 38-year-old white female patient who began having sore throat symptoms yesterday followed by headache, dizziness and bodyaches today. Patient denies head injury. She denies cough. She denies shortness of breath. She denies chest pain. She has not had any abdominal pain. There is been no new medications. She has no known exposures to individuals with same symptoms. Timing/Duration: today (Today body aches, dizziness and headache), yesterday (Sore throat symptoms began) Severity: mild (To moderate) Character of Deficits: none Deficits: no difficulties Baseline/Normal Cognition: alert oriented x 3 Current Cognition: alert oriented x 3 Baseline Gait: walks w/o assistance Associated Symptoms: nausea, headache, other (Myalgias and arthralgias), No fever, No vomiting, No chest pain Allergies/Adverse Reactions: Penicillins Allergy (Verified 11/19/23 19:38) Sulfa (Sulfonamide Antibiotics) Allergy (Verified 11/19/23 19:38) Home Medications: Levothyroxine Sodium 150 Mcg [Synthroid 150 Mcg] 175 mcg PO DAILY 09/13/19 [History] Escitalopram Oxalate 5 mg PO HS 07/09/23 [History] Hx Tetanus, Diphtheria Vaccination/Date Given: Yes Hx Influenza Vaccination/Date Given: No Hx Pneumococcal Vaccination/Date Given: No Travel Risk - International Travel Have you traveled outside of the country in past 3 weeks: No - Emerging Infectious Disease Are you exhibiting symptoms associated with any current EIDs: Yes Symptoms: Abdominal Pain, Headaches/Body Aches/ - Review of Systems Constitutional: No Symptoms Eyes: No Symptoms Ears, Nose, & Throat: Throat Pain Respiratory: No Symptoms Cardiac: No Symptoms Abdominal/Gastrointestinal: Nausea, No Abdominal Pain, No Vomiting, No Diarrhea, No Constipation Genitourinary Symptoms: No Symptoms Musculoskeletal: Arthralgias, Myalgias Skin: No Symptoms Neurological: Dizziness, Headache Psychological: No Symptoms Endocrine: No Symptoms Hematologic/Lymphatic: No Symptoms Immunological/Allergic: No Symptoms All Other Systems: Reviewed and Negative - Past Medical History Pertinent Past Medical History: Yes Neurological History: No Pertinent History ENT History: No Pertinent History Cardiac History: No Pertinent History Respiratory History: No Pertinent History Endocrine Medical History: Thyroid Cancer Musculoskeletal History: No Pertinent History GI Medical History: No Pertinent History History: No Pertinent History Psycho-Social History: Depression Female Reproductive Disorders: No Pertinent History Other Medical History: PCOS - Past Surgical History Past Surgical History: Yes Neuro Surgical History: No Pertinent History Cardiac: No Pertinent History Respiratory: No Pertinent History Gastrointestinal: No Pertinent History Genitourinary: No Pertinent History Musculoskeletal: No Pertinent History, Orthopedic Surgery Female Surgical History: Section Other Surgical History: thyroid removed. knee scope - Social History Smoking Status: Never smoker Exposure to second hand smoke: No Drug Use: marijuana Patient Lives Alone: No - Social Determinants of Health Will the patient participate in the screening: Yes Do you worry about a steady place to live?: No In the past 12 months,have you had to go without utilities?: No Transportation Issues: No Has anyone in your support network made you feel unsafe?: No Have you or anyone in your house had to go without enough: No - Nursing Vital Signs Nursing Vital Signs: Initial Vital Signs Temperature 98.4 F 11/19/23 19:27 Pulse Rate 88 11/19/23 19:27 Respiratory Rate 18 11/19/23 19:27 Blood Pressure 121/57 11/19/23 19:27 O2 Sat by Pulse Oximetry 100 11/19/23 19:27 Pain Scale Pain Intensity 7 - Ho Coma Scale Best Eye Response ([place]): (4) open spontaneously Best Verbal Response ([place]): (5) oriented Best Motor Response ([place]): (6) obeys commands [place] Total: 15 - Physical Exam General Appearance: no apparent distress, alert, anxiety, obese Eye Exam: bilateral eye: normal inspection, PERRL, EOMI Ears, Nose, Throat Exam: normal ENT inspection, moist mucous membranes Neck Exam: normal inspection, non-tender, supple, full range of motion Respiratory: normal breath sounds, lungs clear, airway intact, No chest tenderness, No respiratory distress Cardiovascular: regular rate/rhythm, normal heart sounds, normal peripheral pulses Gastrointestinal: soft, normal bowel sounds, No tenderness Pelvic Exam: not done Rectal Exam: not done Back Exam: normal inspection, normal range of motion, No CVA tenderness, No vertebral tenderness Extremity Exam: normal inspection, normal range of motion, pelvis stable Mental Status: alert, oriented x 3, 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 Exam: normal hearing, normal speech, PERRL Coordination/Gait: normal finger to nose, normal gait, normal cerebellar func tion Motor/Sensory: no motor deficit, no sensory deficit, no pronator drift Skin Exam: normal color, warm, dry SpO2 Interpretation: normal SpO2: 100 O2 Delivery: Room Air - Course Nursing assessment & vital signs reviewed: Yes Ordered Tests: Active Orders 24 hr Category Date Time Status EKG-ER Only STAT Care 11/19/23 19:41 Active IV Insertion STAT Care 11/19/23 19:41 Active Orthostatic Vital Signs STAT Care 11/19/23 19:41 Active BLOOD CULTURE Stat Lab 11/19/23 19:42 Received CBC W DIFF Stat Lab 11/19/23 19:45 Completed CMP Stat Lab 11/19/23 20:25 Completed HCG QUALITATIVE, SERUM Stat Lab 11/19/23 20:25 Completed MAGNESIUM Stat Lab 11/19/23 20:25 Completed MONO SCREEN Stat Lab 11/19/23 20:25 Completed TSH [TSH, 3RD Generation] Stat Lab 11/19/23 20:25 Received UA W/RFX UR CULTURE Stat Lab 11/19/23 19:52 Completed Medication Summary Generic Name Dose Route Start Last Admin Trade Name Freq PRN Reason Stop Dose Admin Ceftriaxone Sodium 1 gm in 100 mls @ 200 mls/hr 11/19/23 21:29 Rocephin 1 Gm / 100 Ml Nacl IV 11/19/23 21:58 STAT ONE Discontinued Medications Generic Name Dose Route Start Last Admin Trade Name Freq PRN Reason Stop Dose Admin Hydrocodone Bitart/Acetaminophen 10 ml 11/19/23 21:05 11/19/23 21:10 Hydrocodone/Acetaminophen 5 Ml Udcup PO 11/19/23 21:06 10 ml STAT STA Administration Hydrocodone Bitart/Acetaminophen Confirm 11/19/23 21:07 Hydrocodone/Acetaminophen 5 Ml Udcup Administered 11/19/23 21:08 Dose 10 ml .ROUTE .STK-MED ONE Sodium Chloride 1,000 mls @ 999 mls/hr 11/19/23 19:41 11/19/23 21:06 Sodium Chloride 0.9% 1000 Ml IV 11/19/23 20:41 Infused .Q1H1M STA Infusion Sodium Chloride Confirm 11/19/23 19:51 Sodium Chloride 0.9% 1000 Ml Administered 11/19/23 19:52 Dose 1,000 mls @ ud .ROUTE .STK-MED ONE Ondansetron HCl 4 mg 11/19/23 19:41 11/19/23 19:53 Ondansetron Hcl 4 Mg/2 Ml Vial IV 11/19/23 19:42 4 mg STAT ONE Administration Ondansetron HCl Confirm 11/19/23 19:51 Ondansetron Hcl 4 Mg/2 Ml Vial Administered 11/19/23 19:52 Dose 4 mg .ROUTE .STK-MED ONE Lab/Rad Data: Laboratory Result Diagrams 11/19/23 19:45 11/19/23 20:25 Laboratory Results 11/19/23 11/19/23 11/19/23 Range/Units 20:35 20:35 20:25 WBC (3.98-10.04) x10^3/uL RBC (3.93-5.22) x10^6/uL Hgb (11.2-15.7) g/dL Hct (34.1-44.9) % MCV (79.4-94.8) fL MCH (25.6-32.2) pg MCHC (32.2-35.5) g/dL RDW (11.7-14.4) % Plt Count (182-369) x10^3/uL MPV (9.4-12.3) fL Gran % (34.0-71.1) % Immature Gran % (Auto) (0.001-0.429) % Nucleat RBC Rel Count (0.00-0.2) % Eos # (Auto) (0.04-0.36) x10^3/uL Immature Gran # (Auto) (0.001-0.031) x10^3u/L Absolute Lymphs (auto) (1.18-3.74) x10^3/uL Absolute Monos (auto) (0.24-0.86) x10^3/uL Absolute Nucleated RBC (0.00-0.012) x10^3u/L Lymphocytes % (19.3-51.7) % Monocytes % (4.7-12.5) % Eosinophils % (0.7-5.8) % Basophils % (0.1-1.2) % Absolute Granulocytes (1.56-6.13) x10^3/uL Basophils # (0.01-0.08) x10^3/uL Sodium (135-145) mmol/L Potassium (3.5-5.1) mmol/L Chloride (98-107) mmol/L Carbon Dioxide (22-30) mmol/L Anion Gap (5-15) MEQ/L BUN (7-17) mg/dL Creatinine (0.52-1.04) mg/dL Estimated GFR ML/MIN Glucose (74-106) mg/dL Calcium (8.4-10.2) mg/dL Magnesium (1.6-2.3) mg/dL Total Bilirubin (0.2-1.3) mg/dL AST (14-36) U/L ALT (0-35) U/L Alkaline Phosphatase (38-126) U/L Serum Total Protein (6.3-8.2) g/dL Albumin (3.5-5.0) g/dL Free T4 (0.78-2.19) ng/dL Serum HCG, Qual NEGATIVE (NEGATIVE) Urine Color (Yellow) Urine Appearance (Clear) Urine pH (4.6-8.0) Ur Specific [place] (1.005-1.030) Urine Protein (Negative) Urine Glucose (UA) (Negative) mg/dL Urine Ketones (Negative) Urine Blood (Negative) Urine Nitrite (Negative) Urine Bilirubin (Negative) Urine Urobilinogen (0.2) mg/dL Ur Leukocyte Esterase (Negative) U Hyaline Cast (Auto) (0-2) /LPF Urine Microscopic RBC (0-5) /HPF Urine Microscopic WBC (0-5) /HPF Ur Epithelial Cells (None Seen) /HPF Urine Bacteria (None Seen) /HPF Urine Culture Reflexed (NO) Monoscreen NEGATIVE (NEGATIVE) Influenza Type A Ag NEGATIVE (NEGATIVE) Influenza Type B Ag NEGATIVE (NEGATIVE) RSV (PCR) NEGATIVE (NEGATIVE) SARS-CoV-2 (PCR) NEGATIVE (NEGATIVE) Group A Strep Antibody NOT DETECTED (NEGATIVE) 11/19/23 11/19/23 11/19/23 Range/Units 20:25 20:25 19:52 WBC (3.98-10.04) x10^3/uL RBC (3.93-5.22) x10^6/uL Hgb (11.2-15.7) g/dL Hct (34.1-44.9) % MCV (79.4-94.8) fL MCH (25.6-32.2) pg MCHC (32.2-35.5) g/dL RDW (11.7-14.4) % Plt Count (182-369) x10^3/uL MPV (9.4-12.3) fL Gran % (34.0-71.1) % Immature Gran % (Auto) (0.001-0.429) % Nucleat RBC Rel Count (0.00-0.2) % Eos # (Auto) (0.04-0.36) x10^3/uL Immature Gran # (Auto) (0.001-0.031) x10^3u/L Absolute Lymphs (auto) (1.18-3.74) x10^3/uL Absolute Monos (auto) (0.24-0.86) x10^3/uL Absolute Nucleated RBC (0.00-0.012) x10^3u/L Lymphocytes % (19.3-51.7) % Monocytes % (4.7-12.5) % Eosinophils % (0.7-5.8) % Basophils % (0.1-1.2) % Absolute Granulocytes (1.56-6.13) x10^3/uL Basophils # (0.01-0.08) x10^3/uL Sodium 136 (135-145) mmol/L Potassium 3.4 L (3.5-5.1) mmol/L Chloride 103 (98-107) mmol/L Carbon Dioxide 24 (22-30) mmol/L Anion Gap 12.6 (5-15) MEQ/L BUN 6 L (7-17) mg/dL Creatinine 0.64 (0.52-1.04) mg/dL Estimated GFR 114.5 ML/MIN Glucose 94 (74-106) mg/dL Calcium 8.7 (8.4-10.2) mg/dL Magnesium 1.7 (1.6-2.3) mg/dL Total Bilirubin 0.90 (0.2-1.3) mg/dL AST 26 (14-36) U/L ALT 25 (0-35) U/L Alkaline Phosphatase 69 (38-126) U/L Serum Total Protein 7.3 (6.3-8.2) g/dL Albumin 4.2 (3.5-5.0) g/dL Free T4 1.31 (0.78-2.19) ng/dL Serum HCG, Qual (NEGATIVE) Urine Color Yellow (Yellow) Urine Appearance Clear (Clear) Urine pH 7.5 (4.6-8.0) Ur Specific [place] 1.020 (1.005-1.030) Urine Protein Trace A (Negative) Urine Glucose (UA) Negative (Negative) mg/dL Urine Ketones Negative (Negative) Urine Blood NHT (Negative) Urine Nitrite Negative (Negative) Urine Bilirubin Negative (Negative) Urine Urobilinogen 1.0 A (0.2) mg/dL Ur Leukocyte Esterase Trace A (Negative) U Hyaline Cast (Auto) NONE SEEN (0-2) /LPF Urine Microscopic RBC 0-2 (0-5) /HPF Urine Microscopic WBC 6-10 A (0-5) /HPF Ur Epithelial Cells Few (None Seen) /HPF Urine Bacteria None Seen (None Seen) /HPF Urine Culture Reflexed NO (NO) Monoscreen (NEGATIVE) Influenza Type A Ag (NEGATIVE) Influenza Type B Ag (NEGATIVE) RSV (PCR) (NEGATIVE) SARS-CoV-2 (PCR) (NEGATIVE) Group A Strep Antibody (NEGATIVE) 11/19/23 Range/Units 19:45 WBC 17.6 H (3.98-10.04) x10^3/uL RBC 4.72 (3.93-5.22) x10^6/uL Hgb 13.2 (11.2-15.7) g/dL Hct 39.3 (34.1-44.9) % MCV 83.3 (79.4-94.8) fL MCH 28.0 (25.6-32.2) pg MCHC 33.6 (32.2-35.5) g/dL RDW 12.8 (11.7-14.4) % Plt Count 251 (182-369) x10^3/uL MPV 10.9 (9.4-12.3) fL Gran % 84.8 H (34.0-71.1) % Immature Gran % (Auto) 0.3 (0.001-0.429) % Nucleat RBC Rel Count 0.0 (0.00-0.2) % Eos # (Auto) 0.06 (0.04-0.36) x10^3/uL Immature Gran # (Auto) 0.05 H (0.001-0.031) x10^3u/L Absolute Lymphs (auto) 1.60 (1.18-3.74) x10^3/uL Absolute Monos (auto) 0.94 H (0.24-0.86) x10^3/uL Absolute Nucleated RBC 0.00 (0.00-0.012) x10^3u/L Lymphocytes % 9.1 L (19.3-51.7) % Monocytes % 5.3 (4.7-12.5) % Eosinophils % 0.3 L (0.7-5.8) % Basophils % 0.2 (0.1-1.2) % Absolute Granulocytes 14.89 H (1.56-6.13) x10^3/uL Basophils # 0.04 (0.01-0.08) x10^3/uL Sodium (135-145) mmol/L Potassium (3.5-5.1) mmol/L Chloride (98-107) mmol/L Carbon Dioxide (22-30) mmol/L Anion Gap (5-15) MEQ/L BUN (7-17) mg/dL Creatinine (0.52-1.04) mg/dL Estimated GFR ML/MIN Glucose (74-106) mg/dL Calcium (8.4-10.2) mg/dL Magnesium (1.6-2.3) mg/dL Total Bilirubin (0.2-1.3) mg/dL AST (14-36) U/L ALT (0-35) U/L Alkaline Phosphatase (38-126) U/L Serum Total Protein (6.3-8.2) g/dL Albumin (3.5-5.0) g/dL Free T4 (0.78-2.19) ng/dL Serum HCG, Qual (NEGATIVE) Urine Color (Yellow) Urine Appearance (Clear) Urine pH (4.6-8.0) Ur Specific [place] (1.005-1.030) Urine Protein (Negative) Urine Glucose (UA) (Negative) mg/dL Urine Ketones (Negative) Urine Blood (Negative) Urine Nitrite (Negative) Urine Bilirubin (Negative) Urine Urobilinogen (0.2) mg/dL Ur Leukocyte Esterase (Negative) U Hyaline Cast (Auto) (0-2) /LPF Urine Microscopic RBC (0-5) /HPF Urine Microscopic WBC (0-5) /HPF Ur Epithelial Cells (None Seen) /HPF Urine Bacteria (None Seen) /HPF Urine Culture Reflexed (NO) Monoscreen (NEGATIVE) Influenza Type A Ag (NEGATIVE) Influenza Type B Ag (NEGATIVE) RSV (PCR) (NEGATIVE) SARS-CoV-2 (PCR) (NEGATIVE) Group A Strep Antibody (NEGATIVE) - Progress Progress: improved, re-examined Progress Note: 11/19/23 19:56 My medical decision making and the assignment of moderate complexity to this patient's medical issue today is based on review of the patient's past medical history, review of the patient's medication list, reviewed patient drug allergy list, history present illness and physical findings on examination. The workup in this patient includes placement of intravenous line, infusion normal saline solution, infusion of Zofran 4 mg, provide the patient with hydr ocodone/acetaminophen elixir to help treat her with sore throat pain, monotest, viral swabs, group A strep test, CBC, CMP, TSH, free T4, urinalysis. Differential diagnosis includes but is not limited to strep pharyngitis, viral illness, electrolyte abnormalities, urinary tract infection, dehydration, abnormal thyroid function test. 11/19/23 21:31 The patient states that she is feeling better. She states her headache and sore throat are improving. She has no neck pain. She has no light sensitivity. She also states that she has had Keflex in the past without any problems taking that medication. Counseled pt/family regarding: lab results, diagnosis, need for follow-up Medical Desision Making - Diagnostic Testing Diagnostic test were ordered, analyzed, and reviewed by me: Yes - Risk of complications The pt has a mod risk of morbidity or mortality based on: Need for prescription drug management - Departure Departure Disposition: Home Clinical Impression: Headache, UTI (urinary tract infection), Leukocytosis Condition: Stable Critical Care Time: No Referrals: DOLORES BHAKTA [facility] [Primary Care Provider] - Follow up/PCP as directed Additional Instructions: Drink plenty of clear liquids. Take your antibiotics and other medications as prescribed. Return to the emergency department if symptoms recur and/or worsen. Call your primary care provider on 11/22/2023, to make arrangements for follow-up appointment to be seen in approximately 3 to 5 days. Prescriptions: Cefdinir 300 mg PO BID #10 cap Hydrocodone/Acetaminophen [Hydrocodone-Acetamn 7.5-325/15] 10 ml PO Q8H PRN #60 ml MDD 30 ml PRN Reason: Cough
[2023-11-19] MEDS ORDERED: Sodium Chloride 0.9% 1000 ML 1,000 ML ONE (19:51)
[2023-11-19] MEDS ORDERED: Zofran 4 MG/2 ML VIAL ONE (19:51)
[2023-11-19] MEDS: Zofran 4 MG/2 ML VIAL IV ONE (19:53)
[2023-11-19] MEDS: Sodium Chloride 0.9% 1000 ML 1,000 ML IV STA (19:53)
[2023-11-19 19:58] LABS: Absolute Neutrophil Ct (ANC) 14.89 x10^3/uL (1.56-6.13); BASOPHIL % 0.2 % (0.1-1.2); Basophil (Absolute #) 0.04 x10^3/uL (0.01-0.08); Eosinophil % 0.3 % (0.7-5.8); Eosinophil (Absolute #) 0.06 x10^3/uL (0.04-0.36); Hematocrit 39.3 % (34.1-44.9); Hemoglobin 13.2 g/dL (11.2-15.7); IMMATURE GRAN # 0.05 x10^3u/L (0.001-0.031); IMMATURE GRAN % 0.3 % (0.001-0.429); Lymphocytes % 9.1 % (19.3-51.7); Mean Cell Volume 83.3 fL (79.4-94.8); Mean Corpuscular Hgb Concent. 33.6 g/dL (32.2-35.5); Mean Platelet Volume 10.9 fL (9.4-12.3); Monocyte (Absolute #) 0.94 x10^3/uL (0.24-0.86); Monocytes % 5.3 % (4.7-12.5); Neutrophil % 84.8 % (34.0-71.1); Platelet Count 251 x10^3/uL (182-369); Red Blood Count 4.72 x10^6/uL (3.93-5.22); Red Cell Distribution Width 12.8 % (11.7-14.4); White Blood Count 17.6 x10^3/uL (3.98-10.04)
[2023-11-19 20:06] LABS: Appearance Clear (Clear); Bacteria None Seen /HPF (None Seen); Bilirubin Negative (Negative); Blood NHT (Negative); Epithelial Cells Few /HPF (None Seen); Glucose, Urine Negative (Negative); Hyaline Casts NONE SEEN /LPF (0-2); Ketones Negative (Negative); Leukocyte Esterase Trace (Negative); Nitrite Negative (Negative); Ph 7.5 (4.6-8.0); Protein,Urine Dip Trace (Negative); RBC 0-2 /HPF (0-5)
[2023-11-19 20:56] LABS: ALBUMIN 4.2 g/dL (3.5-5.0); ANION GAP 12.6 MEQ/L (5-15); BILIRUBIN,TOTAL 0.9 mg/dL (0.2-1.3); Calcium 8.7 mg/dL (8.4-10.2); Creatinine 1 0.64 mg/dL (0.52-1.04); EST GLOMERULAR FILTRATION RATE 114.5 ML/MIN; HCG SERUM TEST NEGATIVE (NEGATIVE); MAGNESIUM 1.7 mg/dL (1.6-2.3); Potassium 3.4 mmol/L (3.5-5.1); Total Protein 7.3 g/dL (6.3-8.2)
[2023-11-19] MEDS ORDERED: HYDROCODONE-ACETAMIN 2.5-108/5 ML SOLUTION ONE ×2 (21:07→21:37)
[2023-11-19] MEDS: HYDROCODONE-ACETAMIN 2.5-108/5 ML SOLUTION PO STA ×2 (21:10→21:38)
[2023-11-19 21:22] LABS: INFLUENZA A NEGATIVE (NEGATIVE); INFLUENZA B NEGATIVE (NEGATIVE); RESPIRATORY SYNCTIAL VIRUS NEGATIVE (NEGATIVE); SARS-CoV-2 Xpert Express NEGATIVE (NEGATIVE)
[2023-11-19] MEDS ORDERED: ROCEPHIN 1 GM / 100 ML NaCl 1 GM/100 ML IVPB IV ONE (21:30)
[2023-11-19] MEDS: ROCEPHIN 1 GM / 100 ML NaCl 1 GM/100 ML IVPB IV ONE (21:32)
[2023-11-19 22:02] VITALS: BP 118/52; PULSE 77; RESP 16; O2SAT 97
[2023-11-20 16:05] LABS: ADD URINE CULTURE? YES (NO)
== END 2023-11-19 22:14 | disposition home or self-care (01) ==
LOC: ED 19:22
DX: N39.0 Urinary tract infection, site not specified (principal); R51.9 Headache, unspecified; D72.829 Elevated white blood cell count, unspecified; J02.9 Acute pharyngitis, unspecified; R42 Dizziness and giddiness; M79.10 Myalgia, unspecified site; Z79.891 Long term (current) use of opiate analgesic; Z79.899 Other long term (current) drug therapy
CPT/HCPCS: 0241U; 36000; 36415; 80053; 81001; 83735; 84439; 84443; 84703; 85025; 86308; 87040; 87086; 87651; 93005; 96365; 96374; 99284; J0696; J2405; A9270-GY

== ENCOUNTER 2024-01-04 05:56 | Day surgery (SDC) | payer OTHER ==
[2024-01-04 06:26] VITALS: RESP 18
[2024-01-04] MEDS: CLINDAMYCIN-D5W 900 MG/50 ML*** 900 MG/50 ML BAG IV SCH (06:42)
[2024-01-04] MEDS: Lactated Ringers 1,000 ML IV SCH (06:42)
[2024-01-04] MEDS: Transderm Scop 1.5MG Patch TOP ONE (06:50)
[2024-01-04 07:07] LABS: HCG SERUM TEST NEGATIVE (NEGATIVE)
[2024-01-04] MEDS ORDERED: Sensorcaine 0.25% 10 ML ONE (07:39)
[2024-01-04] MEDS ORDERED: Sodium Chloride 0.9% 1000 ML 1,000 ML ONE (07:51)
[2024-01-04] MEDS ORDERED: BRIDION 200MG/2ML IV ONE (08:03)
[2024-01-04] MEDS ORDERED: DEXMEDETOMIDINE 80 MCG/20ML-NS IV ONE (08:03)
[2024-01-04] MEDS ORDERED: TORAdol 30 mg Injection ONE (08:03)
[2024-01-04] MEDS ORDERED: Xylocaine-Mpf 2% 5 Ml Vial ONE (08:03)
[2024-01-04] MEDS ORDERED: Decadron 4 MG INJ ONE (08:03)
[2024-01-04] MEDS ORDERED: ROCURONIUM BROMIDE IV ONE (08:03)
[2024-01-04] MEDS ORDERED: DIPRIVAN 200 MG/20 ML IV ONE (08:03)
[2024-01-04] MEDS ORDERED: Zofran 4 MG/2 ML VIAL ONE (08:03)
[2024-01-04] MEDS ORDERED: Versed 2 MG/2 ML Injection ONE (08:04)
[2024-01-04] MEDS ORDERED: SUBLIMAZE 100 MCG/2 ML ONE (08:04)
[2024-01-04] MEDS: Versed 2 MG/2 ML Injection IV PRN (08:05)
[2024-01-04] MEDS ORDERED: ROBINUL ONE (08:12)
[2024-01-04 10:21] VITALS: TEMP 97.2; O2SAT 95
[2024-01-04 10:36] VITALS: BP 108/49; PULSE 54
[2024-01-04 12:05] LABS: Appearance Clear (Clear); Bacteria None Seen /HPF (None Seen); Bilirubin Negative (Negative); Blood Negative (Negative); Epithelial Cells None Seen /HPF (None Seen); Glucose, Urine Negative (Negative); Hyaline Casts NONE SEEN /LPF (0-2); Ketones Negative (Negative); Leukocyte Esterase Negative (Negative); Nitrite Negative (Negative); Ph 5.5 (4.6-8.0); Protein,Urine Dip Negative (Negative); RBC 0-2 /HPF (0-5); Urobilinogen 0.2 mg/dL (0.2); WBC 0-2 /HPF (0-5)
--- NOTE | 2024-01-06 10:25 | OP ---
SURGERY DATE/TIME: 01/04/2024 [id number] PREOPERATIVE DIAGNOSIS: Menorrhagia and contraceptive care. POSTOPERATIVE DIAGNOSIS: Menorrhagia and contraceptive care. PROCEDURE: Laparoscopic bilateral salpingectomy, hysteroscopy, dilation and curettage with endometrial ablation. SURGEON: Que Goldman D.O. GAME PROGRAMER: Denise Dale. ANESTHESIA: General. ESTIMATED BLOOD LOSS: Minimal. COMPLICATIONS: None. DESCRIPTION OF PROCEDURE AND FINDINGS: The risks, benefits, indications, and alternatives of the procedure were reviewed with the patient prior to the procedure. The patient understood the risks of infection, bleeding, bowel injury, bladder injury, ureteral injury, uterine perforation, pelvic infection, thromboembolic disorder, possible future , possible ectopic that can be associated with this surgery where all other forms of control had been discussed with the patient prior to the procedure and desired to have this form of control and this form of treatment as a means to alleviate her current medical issues. At this point, patient was taken to the operating room and given general sedation, placed in a dorsal lithotomy position, prepped and draped in the usual sterile fashion. A weighted speculum was then placed in the patient's vagina and the anterior lip of the cervix was grasped with a single-tooth tenaculum. A uterine manipulator was then inserted through the endocervical region as a means to manipulate the uterus. Attention was then turned to the patient's abdomen where a 5 mm skin incision was made in the umbilical fold, where a 5 mm trocar and sleeve were advanced under direct visualization. Pneumoperitoneum was obtained with 4 L of CO2 gas. An additional incision was made 2 cm above the symphysis pubis where an 8 mm incision was made and 8 mm trocar and sleeve were advanced under direct visualization. An additional incision was made in the left middle quadrant region where a 5 mm incision was made and the 5 mm trocar and sleeve were advanced under direct visualization. From this point, there were no gross abnormalities located within the pelvic region. Patient did have mild omental adhesion, which was taken down with a LigaSure. At this point, the right fallopian tube was elevated and the LigaSure was used and placed on the mesosalpinx where it was clamped, coagulated and cut, taken down to the cornual region. It was done so without complication. Hemostasis was obtained. Same procedure was performed on the left side where the left fallopian tube was elevated and LigaSure was placed along the mesosalpinx where it was clamped, coagulated and cut and taken towards the cornual region of the uterus where the fallopian tube was removed in its entirety. Hemostasis was obtained at this point. From this point, instruments were removed from the patient's abdominal region and the incisions were closed with 4-0 Monocryl suture. Attention was then turned to the patient's vaginal region where a weighted speculum was then placed into the vaginal region. The cervix was then grasped with a single-tooth tenaculum and endocervical dilators were placed through the endocervical region as a means to dilate the cervix and a 5 mm hysteroscope was then placed through the endocervical region where visualization appeared to be in within normal limits with no gross endometrial or uterine cavity abnormalities. From this point, a curette was then placed into the fundus and uterus and curettage was performed in all quadrants of the uterus, retrieving a mild to moderate amount of tissue. From this point, hemostasis was obtained and the NovaSure and SNoW was then placed from the endocervical region to the where the fundal region retracted approximately 1 cm with a length of 6.5 cm and a width of 4.4 cm where it was engaged with an ablative time of 59 seconds. After complete ablation, the instrument was disengaged and removed from the uterine cavity without complication. From this point, all instruments were removed from the patient's vaginal region. The patient was then taken out of the dorsal lithotomy position, was taken out of anesthesia, and was then taken to the recovery room in stable condition. All instruments and laps were accounted for x2.
== END 2024-01-04 10:46 | disposition home or self-care (01) ==
LOC: SDC 05:56
PROVIDERS: ATTEND Obstetrics & Gynecology
DX: N92.0 Excessive and frequent menstruation with regular cycle (principal); Z30.2 Encounter for sterilization
CPT/HCPCS: 36415; 81001; 84703; 87086; J1100; J1885; J2250; J2405; J2704; J3010; A9270-GY

== ENCOUNTER 2024-02-26 09:06 | Emergency (ER) | payer OTHER ==
[2024-02-26 09:30] VITALS: TEMP 98.1
--- NOTE | 2024-02-26 09:44 | ERPHSYRPT ---
- History of Present Illness Patient Subjective Stated Complaint: Weakness Triage Nursing Assessment: Patient ambulated back to ED and transferred self to bed. Patient A+O X3. Patient's skin pink, warm and dry. Patient complains of headache and neck pain for 3 days. Patient states 4 days ago she slept on a different pillow then then next day started having neck and headache. Patient states she has been having N/V since yesterday. Patient complains of head/neck pain 10/. Patient is light sensitive. Physician History: Patient complains of headache and neck pain for 3 days. Patient states 4 days ago she slept on a different pillow then then next day started having neck and headache. Patient states she has been having N/V since yesterday. Patient complains of head/neck pain 10. Patient is light sensitive. Timing/Duration: day(s) (Three days) Quality: throbbing Head Pain Location: frontal Severity of Pain-Max: moderate Severity of Pain-Current: moderate Recent Head Trauma: no recent headache/trauma Associated Symptoms: fatigue, vision changes Previous symptoms: same symptoms as today Allergies/Adverse Reactions: Penicillins Allergy (Verified 02/26/24 09:18) Sulfa (Sulfonamide Antibiotics) Allergy (Verified 02/26/24 09:18) Home Medications: Levothyroxine Sodium 150 Mcg [Synthroid 150 Mcg] 175 mcg PO DAILY 09/13/19 [History] Escitalopram Oxalate [Lexapro] 20 mg PO DAILY 01/04/24 [History] Hx Tetanus, Diphtheria Vaccination/Date Given: Yes Hx Influenza Vaccination/Date Given: No Hx Pneumococcal Vaccination/Date Given: No Immunizations Up to Date: Yes Travel Risk - International Travel Have you traveled outside of the country in past 3 weeks: No - Emerging Infectious Disease Are you exhibiting symptoms associated with any current EIDs: Yes Symptoms: Headaches/Body Aches/, Vomitting - Review of Systems Constitutional: No Fever, No Chills Eyes: No Symptoms Ears, Nose, & Throat: No Symptoms Respiratory: No Cough, No Dyspnea Cardiac: No Chest Pain, No Edema, No Syncope Abdominal/Gastrointestinal: Nausea, No Abdominal Pain, No Vomiting, No Diarrhea Genitourinary Symptoms: No Dysuria Musculoskeletal: No Back Pain, No Neck Pain Skin: No Rash Neurological: Headache, No Dizziness, No Focal Weakness, No Sensory Changes Psychological: No Symptoms Endocrine: No Symptoms All Other Systems: Reviewed and Negative - Past Medical History Pertinent Past Medical History: Yes Neurological History: No Pertinent History ENT History: No Pertinent History Cardiac History: No Pertinent History Respiratory History: No Pertinent History Endocrine Medical History: Thyroid Cancer Musculoskeletal History: No Pertinent History GI Medical History: No Pertinent History History: No Pertinent History Psycho-Social History: Depression Female Reproductive Disorders: No Pertinent History Other Medical History: PCOS. Thyroid cancer - Past Surgical History Past Surgical History: Yes Neuro Surgical History: No Pertinent History Cardiac: No Pertinent History Respiratory: No Pertinent History Gastrointestinal: No Pertinent History Genitourinary: No Pertinent History Musculoskeletal: No Pertinent History, Orthopedic Surgery Female Surgical History: Section, Tubal Ligation, Other Other Surgical History: thyroid removed. knee scope. ablation - Female History Hx Last Menstrual Period: ablation/tubal ligation Hx Now: No - Social History Smoking Status: Never smoker Exposure to second hand smoke: No Drug Use: marijuana Patient Lives Alone: No - Social Determinants of Health Will the patient participate in the screening: Yes Do you worry about a steady place to live?: No Do you have any problems with any of the following?: No known problems In the past 12 months,have you had to go without utilities?: No Transportation Issues: No Has anyone in your support network made you feel unsafe?: No Have you or anyone in your house had to go without enough: No - Nursing Vital Signs Nursing Vital Signs: Initial Vital Signs O2 Sat by Pulse Oximetry 99 02/26/24 09:17 Pain Scale Pain Intensity 9 - Physical Exam General Appearance: no apparent distress Eye Exam: PERRL/EOMI Ears, Nose, Throat Exam: normal ENT inspection, moist mucous membranes Neck Exam: normal inspection, supple, full range of motion, other (muscle spasm occipital area, paraspinal muscles), No meningismus Respiratory Exam: normal breath sounds, lungs clear Cardiovascular Exam: regular rate/rhythm, normal heart sounds Gastrointestinal/Abdominal Exam: soft, No tenderness, No distention Back Exam: normal inspection, normal range of motion Mental Status Exam: alert, oriented x 3, cooperative spud sorter Exam: normal speech, PERRL, No facial droop Coordination/Gait Exam: normal cerebellar function Motor/Sensory Exam: no motor deficit, no sensory deficit Skin Exam: normal color, warm, dry, No rash SpO2 Interpretation: normal SpO2: 99 O2 Delivery: Room Air - Course Nursing assessment & vital signs reviewed: Yes Ordered Tests: Medication Summary Discontinued Medications Generic Name Dose Route Start Last Admin Trade Name Juan PRN Reason Stop Dose Admin Droperidol 1.25 mg 02/26/24 09:39 02/26/24 09:50 Droperidol 5 Mg/2 Ml Vial IM 02/26/24 09:40 1.25 mg STAT ONE Administration Droperidol Confirm 02/26/24 09:45 Droperidol 5 Mg/2 Ml Vial Administered 02/26/24 09:46 Dose 5 mg .ROUTE .STK-MED ONE Ketorolac Tromethamine 60 mg 02/26/24 09:39 02/26/24 09:53 Ketorolac Tromethamine 30 Mg/Ml Inj IM 02/26/24 09:40 60 mg STAT ONE Administration Ketorolac Tromethamine Confirm 02/26/24 09:45 Ketorolac Tromethamine 30 Mg/Ml Inj Administered 02/26/24 09:46 Dose 60 mg .ROUTE .STK-MED ONE - Progress Progress: improved Air Movement: good Blood Culture(s) Obtained: No Antibiotics given: No Counseled pt/family regarding: diagnosis, need for follow-up Medical Desision Making - Independent Historian Additional History obtained from: Spouse - Diagnostic Testing Diagnostic test were ordered, analyzed, and reviewed by me: No - Risk of complications Minimal Risk: Minimal risk of morbidity - Departure Departure Disposition: Home Clinical Impression: Headache in front of head Condition: Stable Critical Care Time: No Referrals: DOLORES BHAKTA NP [Primary Care Provider] - Follow up/PCP as directed Instructions: Tension Headache, Headache, Adult ED Additional Instructions: Discharge/Care Plan NINI LEOS was seen on 02/26/24 in the Emergency Room. The patient was counseled regarding Diagnosis,Lab results, Imaging studies, need for follow up and when to return to the Emergency Room. Prescriptions given: Discharge Note I have spoken with the patient and/or caregivers. I have explained the patient's condition, diagnosis and treatment plan based on the information available to me at this time. I have answered the patient's and/or caregiver's questions and addressed any concerns. The patient and/or caregivers have as good understanding of the patient's diagnosis, condition and treatment plan as can be expected at this point. The vital signs have been stable. The patient's condition is stable and appropriate for discharge from the emergency department. The patient will pursue further outpatient evaluation with the primary care physician or other designated or consulting physician as outlined in the discharge instructions. The patient and/or caregivers are agreeable to this plan of care and follow-up instructions have been explained in detail. The patient and/or caregivers have received these instruction. The patient/and or caregivers are aware that any significant change in condition or worsening of symptoms should prompt an immediate return to this or the closest emergency department or call 911. NINI LEOS was seen on 02/26/24 n the Emergency Room. At that time you were treated for an emergent condition, during your visit Laboratory, Radiology and/or other procedures may have been ordered. It is very important that you follow-up with your Primary Care Physician DOLORES BHAKTA within the next 24-48 hours to review your Emergency Room visit and the final results of testing that was ordered. Some test results such as Urine Cultures, Blood Cultures, and other cultures if ordered will not be finalized for 24-48 hours. If you do not have a Primary Care Provider please call the medical records department at [phone] ext [phone] to obtain a copy of your results or you may sign into our patient portal to obtain these results by visiting us @ [email or web address] and completing the following steps: 1. Click on the Patient Portal link 2. Click the Patient Self Enrollment Link to complete the enrollment form and entering your 3. Once the enrollment form is completed you will receive an email with a temporary ID and password at the email address you provided. 4. Next choose a user name and password. Your user name must be at least 4 characters long and your password must be at least 4 characters long. 5. Choose a security question from the list and provide your answer to the question. If you already have signed into the Health Portal you may access your Health Care Information 05/10 by the following steps: 1. Login to our website @ [email or web address] 2. Enter your original user name and password. FAQS The [facility] Health Portal is an online tool that contains your Lab Results, Radiology Reports, Visit History, Discharge Instructions and Health Summary Lab and Radiology Results will not be available for 72 hours on the portal. The Portal is a secure site, passwords are encryted and URLs are re-written so they cannot be copied and pasted. You and authorized family members are the only ones who can access your Portal. Also there is a timeout feature that protects your information if you leave the Portal page open. If you have technical difficulty please use the Contact Us link on the page this will allow you to submit any questions you have regarding the Portal or you may contact the Medical Record Department at [phone] ext [phone].
[2024-02-26] MEDS ORDERED: TORAdol 30 mg Injection ONE (09:45)
[2024-02-26] MEDS: TORAdol 30 mg Injection IM ONE (09:53)
[2024-02-26 10:33] VITALS: BP 124/54; PULSE 77; RESP 18; O2SAT 96
== END 2024-02-26 10:43 | disposition home or self-care (01) ==
LOC: ED 09:06
DX: R51.9 Headache, unspecified (principal); M54.2 Cervicalgia
CPT/HCPCS: 96372; 99283; J1885